=== PATIENT | female | born 1965 | race African-American/Black ===

== ENCOUNTER 2016-07-13 17:29 | Inpatient (IN) | payer OTHER ==
[~2016-07-13] VITALS: Ht 157.5 cm; Wt 67.0 kg
[~2016-07-13 17:29] MED LIST: CILO100T PO; CLOP75TA PO; HYDR25TA5 PO; METO50TA11 PO; NITR1SUB2 SL
[2016-07-13 17:31] VITALS: BP 142/104; PULSE 76; RESP 16; TEMP 97.4; O2SAT 98
[2016-07-13 19:19] LABS: AUTOMATED NEUTROPHIL # 1.5 TH/MM3 (1.8-7.7); BASOPHIL % 0.6 % (0.0-2.0); EOSINOPHIL % 0.2 % (0.0-4.0); HEMATOCRIT 33.9 % (35.0-46.0); HEMO FLAGS DIFF FINAL; LYMPH % 37.4 % (9.0-44.0); LYMPHOCYTE # 1.1 TH/MM3 (1.0-4.8); MEAN CELL VOLUME 85.8 FL (80.0-100.0); MEAN CORPUSCULAR HEMOGLOBIN 29.3 PG (27.0-34.0); MEAN CORPUSCULAR HGB CONC 34.2 % (32.0-36.0); MONO % 10.5 % (0.0-8.0); NEUT % 51.3 % (16.0-70.0); PLATELET COUNT 175 TH/MM3 (150-450); RED BLOOD COUNT 3.95 MIL/MM3 (4.00-5.30); RED CELL DISTRIBUTION WIDTH 14.4 % (11.6-17.2); WHITE BLOOD COUNT 2.9 TH/MM3 (4.0-11.0)
--- NOTE | 2016-07-13 19:25 | PD ---
HPI Chief Complaint: Abnormal Results Time Seen by Provider: 19:21 Travel History International Travel<30 days: No Contact w/Intl Traveler<30days: No Traveled to known affect area: No History of Present Illness HPI Patient is a 50-year-old female presenting to the emergency department on the advice of her primary physician for reevaluation of her renal function. Patient states she had labs drawn on 07/10/16 which showed a BUN and creatinine of 63/6.6. Patient does have a history of chronic kidney disease, she reports it being stage III the last she was aware. Her medical history also includes hypertension, Valdez syndrome, coronary artery disease status post CABG, DVT. Patient is currently on Plavix. Patient has no physical complaints at this time. PFSH Past Medical History Hx Anticoagulant Therapy: Yes Autoimmune Disease: Yes (Valdez syndrome) Coronary Artery Disease: Yes Deep Vein Thrombosis: Yes Hypertension: Yes Renal Failure: Yes (stage III) Past Surgical History Coronary Artery Bypass Graft: Yes Social History Alcohol Use: No Tobacco Use: No Substance Use: No Allergies-Medications (Allergen,Severity, Reaction): Coded Allergies: HMG-CoA Reductase Inhibitors (Verified Allergy, Severe, Cramping, 07/13/16) Reported Meds & Prescriptions Reported Meds & Active Scripts Active Clopidogrel (Clopidogrel Bisulfate) 75 Mg Tab 75 Mg PO DAILY Metoprolol Succinate ER 24 HR (Metoprolol Succinate) 50 Mg Tab 50 Mg PO DAILY Cilostazol 100 Mg Tab 100 Mg PO BID Hydrochlorothiazide 25 Mg Tab 25 Mg PO DAILY Nitroglycerin SL (Nitroglycerin) 0.3 Mg Subl 0.3 Mg SL DIRECTED PRN 1 TABLET UNDER TONGUE PRN FOR CHEST PAIN, MAY REPEAT EVERY 5 MINUTES FOR TOTAL OF 3 DOSES. CALL 911 IF NO RELIEF Review of Systems Except as stated in HPI: all other systems reviewed are Neg Physical Exam Narrative GENERAL: Well-developed, well-nourished, alert female. Resting comfortably in no acute distress. SKIN: Warm and dry. HEAD: Atraumatic. Normocephalic. EYES: Pupils equal and round. No scleral icterus. No injection or drainage. ENT: No nasal bleeding or discharge. Mucous membranes pink and moist. NECK: Trachea midline. No JVD. CARDIOVASCULAR: Regular rate and rhythm. No murmur appreciated. RESPIRATORY: No accessory muscle use. Clear to auscultation. Breath sounds equal bilaterally. GASTROINTESTINAL: Abdomen soft, non-tender, nondistended. Hepatic and splenic margins not palpable. MUSCULOSKELETAL: No obvious deformities. No clubbing. No cyanosis. No edema. NEUROLOGICAL: Awake and alert. No obvious cranial nerve deficits. Motor grossly within normal limits. Normal speech. PSYCHIATRIC: Appropriate mood and affect; insight and judgment normal. Data Data Last Documented VS Vital Signs Date Time Temp Pulse Resp B/P Pulse Ox O2 Delivery O2 Flow Rate FiO2 07/13/16 17:31 97.4 76 16 142/104 98 Room Air Orders Complete Blood Count With Diff (07/13/16 18:39) Basic Metabolic Panel (Bmp) (07/13/16 18:50) Urinalysis - C+S If Indicated (07/13/16 19:20) Labs Laboratory Tests Test 07/13/16 07/13/16 18:55 19:29 White Blood Count 2.9 TH/MM3 Red Blood Count 3.95 MIL/MM3 Hemoglobin 11.6 GM/DL Hematocrit 33.9 % Mean Corpuscular Volume 85.8 FL Mean Corpuscular Hemoglobin 29.3 PG Mean Corpuscular Hemoglobin 34.2 % Concent Red Cell Distribution Width 14.4 % Platelet Count 175 TH/MM3 Mean Platelet Volume 9.0 FL Neutrophils (%) (Auto) 51.3 % Lymphocytes (%) (Auto) 37.4 % Monocytes (%) (Auto) 10.5 % Eosinophils (%) (Auto) 0.2 % Basophils (%) (Auto) 0.6 % Neutrophils # (Auto) 1.5 TH/MM3 Lymphocytes # (Auto) 1.1 TH/MM3 Monocytes # (Auto) 0.3 TH/MM3 Eosinophils # (Auto) 0.0 TH/MM3 Basophils # (Auto) 0.0 TH/MM3 CBC Comment DIFF FINAL Differential Comment Sodium Level 136 MEQ/L Potassium Level 3.4 MEQ/L Chloride Level 102 MEQ/L Carbon Dioxide Level 24.3 MEQ/L Anion Gap 10 MEQ/L Blood Urea Nitrogen 64 MG/DL Creatinine 6.73 MG/DL Estimat Glomerular Filtration 8 ML/MIN Rate Random Glucose 107 MG/DL Calcium Level 7.7 MG/DL Urine Color LIGHT-YELLOW Urine Turbidity CLEAR Urine pH 6.0 Urine Specific [place] 1.006 Urine Protein 300 mg/dL Urine Glucose (UA) NEG mg/dL Urine Ketones NEG mg/dL Urine Occult Blood NEG Urine Nitrite NEG Urine Bilirubin NEG Urine Urobilinogen LESS THAN 2.0 MG/DL Urine Leukocyte Esterase NEG Urine RBC 1 /hpf Urine WBC 1 /hpf Urine Squamous Epithelial <1 /hpf Cells Urine Bacteria RARE /hpf Urine Hyaline Casts 1 /lpf Urine Mucus FEW /lpf Microscopic Urinalysis Comment CULT NOT INDICATED MDM Medical Decision Making Medical Screen Exam Complete: Yes Emergency Medical Condition: Yes Interpretation(s) Vital Signs Date Time Temp Pulse Resp B/P Pulse Ox O2 Delivery O2 Flow Rate FiO2 07/13/16 17:31 97.4 76 16 142/104 98 Room Air Differential Diagnosis Acute on chronic renal failure versus end-stage renal disease versus electrolyte abnormality versus urinary tract infection versus dehydration versus other Narrative Course Patient is a 50-year-old female who presents emergency department on the advice of her primary physician due to elevated BUN and creatinine. Patient does have a history of chronic kidney disease stage III. She also has a history of Valdez syndrome. She no physical complaints today. Labs ordered and pending. Care of patient will be transferred to provider when medical bed available. Sarika Campbell Jul 13, 2016 19:25
[2016-07-13 19:41] LABS: BICARBONATE 24.3 MEQ/L (21.0-32.0); POTASSIUM 3.4 MEQ/L (3.5-5.1)
[2016-07-13 19:48] LABS: BACTERIA, URINE RARE /hpf; BLOOD, URINE NEG (NEG); COMMENT (UR) CULT NOT INDICATED; CULTURE IF INDICATED CULT NOT INDICATED; GLUCOSE,URINE NEG (NEG); HYALINE CAST, URINE 1 /lpf (RARE); KETONE, URINE NEG (NEG); MUCUS URINE FEW /lpf (OCC); NITRITE,URINE NEG (NEG); SQUAMOUS EPITHELIAL CELL URINE <1 /hpf (0-5); URINE COLOR LIGHT-YELLOW (YELLW/STRAW)
--- NOTE | 2016-07-13 20:16 | PD ---
Physical Exam Time Seen by Provider: 20:14 Narrative The patient was initially assessed in triage by SONNY Mathur. See her note for initial assessment and evaluation. I reassessed the patient and I agree with initial evaluation and history of present illness. Data Data Last Documented VS Vital Signs Date Time Temp Pulse Resp B/P Pulse Ox O2 Delivery O2 Flow Rate FiO2 07/13/16 17:31 97.4 76 16 142/104 98 Room Air Orders Complete Blood Count With Diff (07/13/16 18:39) Basic Metabolic Panel (Bmp) (07/13/16 18:50) Urinalysis - C+S If Indicated (07/13/16 19:20) Consult Nephrology (07/13/16 ) Glomerular Basement Membran Ab (07/13/16 21:16) Juliann Screen (07/13/16 21:16) Antineutrophil Cytoplasmic Abs (07/13/16 21:16) Complement C3 (07/13/16 21:16) Complement C4 (07/13/16 21:16) Protein Creat Ratio, Random Ur (07/13/16 21:16) Renal Functional Panel (07/14/16 06:00) Us Kidney/Renal/Bladder (07/13/16 ) Hepatitis Profile (07/13/16 21:16) Lupus Anticoagulant Drvvt (07/13/16 21:23) Anti-Phospholipid Abs W/O Lup (07/13/16 21:23) Labs Laboratory Tests Test 07/13/16 07/13/16 18:55 19:29 White Blood Count 2.9 TH/MM3 Red Blood Count 3.95 MIL/MM3 Hemoglobin 11.6 GM/DL Hematocrit 33.9 % Mean Corpuscular Volume 85.8 FL Mean Corpuscular Hemoglobin 29.3 PG Mean Corpuscular Hemoglobin 34.2 % Concent Red Cell Distribution Width 14.4 % Platelet Count 175 TH/MM3 Mean Platelet Volume 9.0 FL Neutrophils (%) (Auto) 51.3 % Lymphocytes (%) (Auto) 37.4 % Monocytes (%) (Auto) 10.5 % Eosinophils (%) (Auto) 0.2 % Basophils (%) (Auto) 0.6 % Neutrophils # (Auto) 1.5 TH/MM3 Lymphocytes # (Auto) 1.1 TH/MM3 Monocytes # (Auto) 0.3 TH/MM3 Eosinophils # (Auto) 0.0 TH/MM3 Basophils # (Auto) 0.0 TH/MM3 CBC Comment DIFF FINAL Differential Comment Sodium Level 136 MEQ/L Potassium Level 3.4 MEQ/L Chloride Level 102 MEQ/L Carbon Dioxide Level 24.3 MEQ/L Anion Gap 10 MEQ/L Blood Urea Nitrogen 64 MG/DL Creatinine 6.73 MG/DL Estimat Glomerular Filtration 8 ML/MIN Rate Random Glucose 107 MG/DL Calcium Level 7.7 MG/DL Urine Color LIGHT-YELLOW Urine Turbidity CLEAR Urine pH 6.0 Urine Specific [place] 1.006 Urine Protein 300 mg/dL Urine Glucose (UA) NEG mg/dL Urine Ketones NEG mg/dL Urine Occult Blood NEG Urine Nitrite NEG Urine Bilirubin NEG Urine Urobilinogen LESS THAN 2.0 MG/DL Urine Leukocyte Esterase NEG Urine RBC 1 /hpf Urine WBC 1 /hpf Urine Squamous Epithelial <1 /hpf Cells Urine Bacteria RARE /hpf Urine Hyaline Casts 1 /lpf Urine Mucus FEW /lpf Microscopic Urinalysis Comment CULT NOT INDICATED MDM Medical Record Reviewed: Yes Supervised Visit with MARIA INES: Yes Differential Diagnosis Kidney failure, end-stage renal disease, medical clearance Narrative Course The patient was initially assessed in triage by SONNY Mathur. See her note for initial assessment and evaluation. I reassessed the patient and I agree with initial evaluation and history of present illness. 2015: WBC 2.9. Potassium 3.4. BUN 64. Creatinine 6.73. GFR 8. 2052: I spoke with Dr. Stahl, manager office and he recommended for the patient to be admitted to medical with consult to him. Call placed to [facility]. 2199: Dr. Bowling, Resident MD, at bedside and report given. Patient admitted. Physician Communication Physician Communication Dr. Sathl, manager office Dr. Aburto, Resident MD Diagnosis Primary Impression: ESRD (end stage renal disease) Admitting Information Admitting Physician Requests: Admit AdamtevinYuridia Jul 13, 2016 20:16
[2016-07-13 22:00] VITALS: BP 157/92; PULSE 70; RESP 14; O2SAT 97
[2016-07-13] MEDS ORDERED: ONDANSETRON HCL 4 MG/2 ML VIAL IVP PRN (22:15)
[2016-07-13] MEDS ORDERED: ACETAMINOPHEN 325 MG TAB PO PRN (22:15)
[2016-07-13] MEDS ORDERED: NALOXONE HCL 0.4 MG/ML AMP IV PRN (22:15)
[2016-07-13] MEDS ORDERED: SODIUM CHLORIDE 0.9% FLUSH 5 ML FLUSH FLUSH PRN (22:15)
--- NOTE | 2016-07-13 22:22 | HHI.HP ---
[facility] Service Family Medicine Primary Care Physician [facility] R1 MD Idris Admission Diagnosis ESRD Diagnoses: Chief Complaint: Sent over by PCP for abnormal labs. International Travel<30 Days: No Contact w/Intl Traveler<30days: No Known Affected Area: No History of Present Illness Patient is a 50-year-old female with a past medical history significant for HTN , CAD s/p CABG, ESRD, and Valdez syndrome who presented to the ED after being sent over by her PCP, Dr. Goff, for abnormal labs. Patient had a creatinine of 5.12 and a GFR of 7 on 07/03. A repeat BMP was performed in the creatinine increased to 6.6 and GFR 7 today. Patient has been feeling fatigued, nausea, vomiting, lightheaded, and having difficulty with short term memory. She is producing urine up to 5 times per day. She denies any polyuria or polydipsia. No fevers, chills, dysuria, back pain, hematuria, headache, dizziness, or visual changes. (Sugar Dennis MD R2) Review of Systems Constitutional: COMPLAINS OF: Fatigue, DENIES: Fever, Dizziness Endocrine: DENIES: Polydipsia, Polyuria Eyes: DENIES: Blurred vision, Vision loss Respiratory: DENIES: Cough, Shortness of breath Cardiovascular: DENIES: Chest pain, Lower Extremity Edema Gastrointestinal: COMPLAINS OF: Nausea, Vomiting, DENIES: Abdominal pain Genitourinary: DENIES: Hematuria, Dysuria Musculoskeletal: DENIES: Muscle aches, Back pain Integumentary: DENIES: Rash Neurologic: DENIES: Headache, Localized weakness, Paresthesias Psychiatric: DENIES: Mood changes (Sugar Dennis MD R2) Past Family Social History Past Medical History HTN ESRD Valdez syndrome: autoimmune clotting disorder DVT of right foot on September 03, 2011 Past Surgical History CABG - 1999 - 2000 Reported Medications Reported Meds & Active Scripts Active Clopidogrel (Clopidogrel Bisulfate) 75 Mg Tab 75 Mg PO DAILY Metoprolol Succinate ER 24 HR (Metoprolol Succinate) 50 Mg Tab 50 Mg PO DAILY Cilostazol 100 Mg Tab 100 Mg PO BID Hydrochlorothiazide 25 Mg Tab 25 Mg PO DAILY Nitroglycerin SL (Nitroglycerin) 0.3 Mg Subl 0.3 Mg SL DIRECTED PRN 1 TABLET UNDER TONGUE PRN FOR CHEST PAIN, MAY REPEAT EVERY 5 MINUTES FOR TOTAL OF 3 DOSES. CALL 911 IF NO RELIEF (Sugar Dennis MD R2) Allergies: Coded Allergies: HMG-CoA Reductase Inhibitors (Verified Allergy, Severe, Cramping, 07/13/16) Family History Father: in Jan 1998 at age 67 in 1997 from an auto accident. Mother: in Apr 1998 at age 52 from a heart attack Sibling(s): 5 brothers and 1 sister who all live in [place], pt is child # 4 Children: 3 Female, 29 - lives in [place] Male, 20 - [employer] in [place] Male, 15 - lives with parents Social History No tobacco, alcohol or illicit drug use. (Sugar Dennis MD R2) Physical Exam Vital Signs Vital Signs Date Time Temp Pulse Resp B/P Pulse Ox O2 Delivery O2 Flow Rate FiO2 07/13/16 22:00 70 14 157/92 97 Room Air 07/13/16 17:31 97.4 76 16 142/104 98 Room Air Physical Exam GENERAL: This is a well-nourished, well-developed female patient, in no apparent distress. SKIN: No rashes, ecchymoses or lesions. Cool and dry. HEAD: Atraumatic. Normocephalic. No temporal or scalp tenderness. EYES: Pupils equal round and reactive. Extraocular motions intact. No scleral icterus. No injection or drainage. ENT: Nose without bleeding, purulent drainage or septal hematoma. Throat without erythema, tonsillar hypertrophy or exudate. Uvula midline. Airway patent. NECK: Trachea midline. No JVD or lymphadenopathy. Supple, nontender, no meningeal signs. CARDIOVASCULAR: Regular rate and rhythm without gallops or rubs. 2/6 holosystolic murmur that radiates to the carotids RESPIRATORY: Clear to auscultation. Breath sounds equal bilaterally. No wheezes , rales, or rhonchi. GASTROINTESTINAL: Abdomen soft, non-tender, nondistended. No hepato-splenomegaly , or palpable masses. No guarding. No CVA tenderness. MUSCULOSKELETAL: Extremities without clubbing, cyanosis, or edema. No joint tenderness, effusion, or edema noted. No calf tenderness. NEUROLOGICAL: Awake and alert. Cranial nerves II through XII intact. Motor and sensory grossly within normal limits. Normal speech. PSYCHIATRIC: Appropriate insight and judgement. Laboratory Laboratory Tests Test 07/13/16 07/13/16 18:55 19:29 White Blood Count 2.9 Red Blood Count 3.95 Hemoglobin 11.6 Hematocrit 33.9 Mean Corpuscular Volume 85.8 Mean Corpuscular Hemoglobin 29.3 Mean Corpuscular Hemoglobin 34.2 Concent Red Cell Distribution Width 14.4 Platelet Count 175 Mean Platelet Volume 9.0 Neutrophils (%) (Auto) 51.3 Lymphocytes (%) (Auto) 37.4 Monocytes (%) (Auto) 10.5 Eosinophils (%) (Auto) 0.2 Basophils (%) (Auto) 0.6 Neutrophils # (Auto) 1.5 Lymphocytes # (Auto) 1.1 Monocytes # (Auto) 0.3 Eosinophils # (Auto) 0.0 Basophils # (Auto) 0.0 CBC Comment DIFF FINAL Differential Comment Sodium Level 136 Potassium Level 3.4 Chloride Level 102 Carbon Dioxide Level 24.3 Anion Gap 10 Blood Urea Nitrogen 64 Creatinine 6.73 Estimat Glomerular Filtration 8 Rate Random Glucose 107 Calcium Level 7.7 Urine Color LIGHT-YELLOW Urine Turbidity CLEAR Urine pH 6.0 Urine Specific [place] 1.006 Urine Protein 300 Urine Glucose (UA) NEG Urine Ketones NEG Urine Occult Blood NEG Urine Nitrite NEG Urine Bilirubin NEG Urine Urobilinogen LESS THAN 2.0 Urine Leukocyte Esterase NEG Urine RBC 1 Urine WBC 1 Urine Squamous Epithelial <1 Cells Urine Bacteria RARE Urine Hyaline Casts 1 Urine Mucus FEW Microscopic Urinalysis Comment CULT NOT INDICATED (Sugar Dennis MD R2) Result Diagram: 07/13/16185407/13/161854 Septic Shock Reassessment Heart: Regular rate and rhythm Lungs: Clear Skin: Warm, Dry Peripheral Pulses: Bounding Right Radial Bounding Left Radial Capillary Refill: Brisk (Sugar Dennis MD R2) Assessment and Plan Assessment and Plan Patient is a 50-year-old female with a past medical history significant for HTN , CAD s/p CABG, CKD, and Valdez syndrome admitted for ESRD. Code Status Full Code Discussed Condition With [facility] Medicine Team (Sugar Dennis MD R2) Attending Attestation The patient has been seen and examined. The chart and all resident notes have been reviewed. I agree that inpatient care is appropriate and that a two midnight stay is expected for the reasons documented in the resident history and physical. I have discussed this with the resident and certify the resident s order for inpatient admission. (Angélica Hodges MD) Problem List: (1) ESRD (end stage renal disease) Status: Acute Plan: Creatinine elevated at 6.73, BUN elevated at 64. Progressively increasing. Cr Clearance 10.4 History significant for fatigue, light-headedness, short term memory loss. UA significant for 300 protein 2/10 microalbumin/creatinine ratio elevated at 5513.7, TSH wnl 2.740 Continues to produce urine. Plan: - Consult Nephrology- Dr. Stahl. May eventually require dialysis. - Obtain Phos, Mg, Renal US - AM CBC, CMP (2) HTN (hypertension) Status: Acute Plan: BP 157/92 on admission Continue home dose of HCTZ 25mg PO daily Hydralazine 10mg PO Q8H PRN (3) CAD (coronary artery disease) Status: Acute Plan: Continue home dose of Plavix 75mg PO daily and Metoprolol 50mg PO daily (4) Valdez syndrome Status: Acute Plan: Continue home dose of Cilostazol 100mg PO BID (5) Nutrition, metabolism, and development symptoms Status: Acute Plan: Fluids: None Electrolytes: mild hypokalemia of 3.4, repleted with 20meq KCl, continue to monitor Nutrition: Renal Diet DVT PPx: Heparin 5000units SQ Q12H (Sugar Dennis MD R2) Physician Certification 2 Midnight Certification Type: Admission for Inpatient Services Order for Inpatient Services The services are ordered in accordance with Medicare regulations or non- Medicare payer requirements, as applicable. In the case of services not specified as inpatient-only, they are appropriately provided as inpatient services in accordance with the 2-midnight benchmark. Estimated LOS (days): 3 days is the estimated time the patient will need to remain in the hospital, assuming treatment plan goals are met and no additional complications. Post-Hospital Plan: Home (Sugar Dennis MD R2) Problem Qualifiers (1) HTN (hypertension): Qualified Code: I10 - Essential hypertension (2) CAD (coronary artery disease): Qualified Code: I25.10 - Coronary artery disease involving [place] coronary artery of [place] heart without angina pectoris Sugar Dennis MD R2 Jul 13, 2016 22:22 Angélica Hodges MD Jul 14, 2016 20:52
[2016-07-13] MEDS ORDERED: hydrALAZINE HCL 10 MG TAB PO PRN (22:45)
[2016-07-13] MEDS ORDERED: POTASSIUM CHLORIDE 20 MEQ CONTROLLED RELEASE TAB PO ONE (22:45)
[2016-07-13] MEDS ORDERED: NITROGLYCERIN 0.3 MG SL 100 TABS/BTL SL PRN (22:45)
[2016-07-13 23:00] LABS: MAGNESIUM 2.1 MG/DL (1.5-2.5); TRANSFERRIN IRON PROFILE 170 MG/DL (200-360)
[2016-07-13 23:03] LABS: FERRITIN 329 NG/ML (8-252)
[2016-07-13] MEDS: HEPARIN SODIUM - SQ 10,000 UNITS/ML VIAL SQ SCH (23:21)
[2016-07-13 23:24] LABS: APTT (PATIENT) 27.3 SEC (24.3-30.1); INTERNATIONAL NORMALIZED RATIO 0.9 RATIO; PROTHROMBIN TIME - PATIENT 10.3 SEC (9.8-11.6)
--- NOTE | 2016-07-13 23:28 | PD.CONS ---
HPI Service Nephrology Consult Requested By Reason for Consult ESRD Primary Care Physician Genny Steinberg MD History of Present Illness Patient is a 50-year-old female with history of antiphospholipid antibody syndrome, coronary artery disease status post CABG , chronic kidney disease who has progressed towards end-stage renal disease, she has moved from [place], patient has lost her insurance not been to a child day care teacher for more than a year further patient states that she was being followed by a child day care teacher in [place] area however she did do not recall the name, she has antiphospholipid antibody syndrome and had DVT after her cardiac surgery and was on blood thinners currently on Plavix. Patient has been having nausea, vomiting, fatigue, loss of memory and loss of appetite, she still passing urine denies any shortness of breath or edema. Review of Systems Constitutional: COMPLAINS OF: Fatigue Gastrointestinal: COMPLAINS OF: Nausea, Vomiting, Anorexia Psychiatric: COMPLAINS OF: Anxiety Past Family Social History Allergies: Coded Allergies: HMG-CoA Reductase Inhibitors (Verified Allergy, Severe, Cramping, 07/13/16) Past Medical History Chronic kidney disease Antiphospholipid antibody syndrome DVT Coronary artery disease status post CABG Hypertension Past Surgical History Coronary artery bypass surgery Reported Medications Reported Meds & Active Scripts Active Clopidogrel (Clopidogrel Bisulfate) 75 Mg Tab 75 Mg PO DAILY Metoprolol Succinate ER 24 HR (Metoprolol Succinate) 50 Mg Tab 50 Mg PO DAILY Cilostazol 100 Mg Tab 100 Mg PO BID Hydrochlorothiazide 25 Mg Tab 25 Mg PO DAILY Nitroglycerin SL (Nitroglycerin) 0.3 Mg Subl 0.3 Mg SL DIRECTED PRN 1 TABLET UNDER TONGUE PRN FOR CHEST PAIN, MAY REPEAT EVERY 5 MINUTES FOR TOTAL OF 3 DOSES. CALL 911 IF NO RELIEF Active Ordered Medications Current Medications Medications (Trade) Dose Ordered Sig/Hunter Route Start Time Stop Time Status Last Admin (NS Flush) 2 ml UNSCH PRN FLUSH 07/13/16 22:15 (NS Flush) 2 ml BID FLUSH 07/14/16 09:00 (Tylenol) 650 mg Q4H PRN PO 07/13/16 22:15 (Zofran Inj) 4 mg Q6H PRN IVP 07/13/16 22:15 (Narcan Inj) 0.4 mg UNSCH PRN IV 07/13/16 22:15 (Pletal) 100 mg BID PO 07/14/16 09:00 (Plavix) 75 mg DAILY PO 07/14/16 09:00 (Hydrodiuril) 25 mg DAILY PO 07/14/16 09:00 (Toprol Xl) 50 mg DAILY PO 07/14/16 09:00 (Nitrostat Sl) 0.3 mg Q6HR PRN SL 07/13/16 22:45 (Heparin Inj) 5,000 units Q12H SQ 07/13/16 22:30 (Apresoline) 10 mg Q8HR PRN PO 07/13/16 22:45 Family History Noncontributory Social History Denies smoking or alcohol use Physical Exam Vital Signs Vital Signs Date Time Temp Pulse Resp B/P Pulse Ox O2 Delivery O2 Flow Rate FiO2 07/13/16 22:00 70 14 157/92 97 Room Air 07/13/16 17:31 97.4 76 16 142/104 98 Room Air Physical Exam GENERAL: Well-nourished, well-developed patient. SKIN: Warm and dry. HEAD: Normocephalic. EYES: No scleral icterus. No injection or drainage. NECK: Supple, trachea midline. No JVD or lymphadenopathy. CARDIOVASCULAR: Regular rate and rhythm without murmurs, gallops, or rubs. RESPIRATORY: Breath sounds equal bilaterally. No accessory muscle use. GASTROINTESTINAL: Abdomen soft, non-tender, nondistended. EXTREMITIES: No cyanosis, or edema. NEUROLOGICAL: Awake, alert, and oriented x 3. Non-focal. Laboratory Laboratory Tests Test 07/13/16 07/13/16 18:55 19:29 White Blood Count 2.9 Red Blood Count 3.95 Hemoglobin 11.6 Hematocrit 33.9 Mean Corpuscular Volume 85.8 Mean Corpuscular Hemoglobin 29.3 Mean Corpuscular Hemoglobin 34.2 Concent Red Cell Distribution Width 14.4 Platelet Count 175 Mean Platelet Volume 9.0 Neutrophils (%) (Auto) 51.3 Lymphocytes (%) (Auto) 37.4 Monocytes (%) (Auto) 10.5 Eosinophils (%) (Auto) 0.2 Basophils (%) (Auto) 0.6 Neutrophils # (Auto) 1.5 Lymphocytes # (Auto) 1.1 Monocytes # (Auto) 0.3 Eosinophils # (Auto) 0.0 Basophils # (Auto) 0.0 CBC Comment DIFF FINAL Differential Comment Sodium Level 136 Potassium Level 3.4 Chloride Level 102 Carbon Dioxide Level 24.3 Anion Gap 10 Blood Urea Nitrogen 64 Creatinine 6.73 Estimat Glomerular Filtration 8 Rate Random Glucose 107 Calcium Level 7.7 Phosphorus Level 4.2 Magnesium Level 2.1 Iron Level 42 Total Iron Binding Capacity 238 Percent Iron Saturation 17.6 Ferritin 329 Urine Color LIGHT-YELLOW Urine Turbidity CLEAR Urine pH 6.0 Urine Specific [place] 1.006 Urine Protein 300 Urine Glucose (UA) NEG Urine Ketones NEG Urine Occult Blood NEG Urine Nitrite NEG Urine Bilirubin NEG Urine Urobilinogen LESS THAN 2.0 Urine Leukocyte Esterase NEG Urine RBC 1 Urine WBC 1 Urine Squamous Epithelial <1 Cells Urine Bacteria RARE Urine Hyaline Casts 1 Urine Mucus FEW Microscopic Urinalysis Comment CULT NOT INDICATED Result Diagram: 07/13/16185407/13/161854 Assessment and Plan Problem List: (1) ESRD (end stage renal disease) Plan: Patient is explained that she has advanced kidney disease and nausea could be related to early signs of uremia, she may have progress towards end- stage renal disease due to progression of underlying kidney disease which may be related to antiphospholipid antibody syndrome, FSGS however this is preliminary differential diagnosis, we need to review the records from [facility] to compare. I have explained to her that her kidney failure is far advanced and she may need to hemodialysis versus peritoneal dialysis and ports, difference in modalities were explained to her, the fastest is hemodialysis via temporary catheter and this will be requested in the morning, since she has APS, I will request a hematology consult. (2) HTN (hypertension) Plan: Continue monitor in the hospital (3) CAD (coronary artery disease) Plan: Status post CABG (4) Valdez syndrome Plan: Hematology consulted [facility] for autoimmune and Anti phospholipid antibody ordered. Problem Qualifiers (1) HTN (hypertension): Qualified Code: I10 - Essential hypertension (2) CAD (coronary artery disease): Qualified Code: I25.10 - Coronary artery disease involving [place] coronary artery of [place] heart without angina pectoris Casey Stahl MD Jul 13, 2016 23:28
[2016-07-14] VITALS (7 sets, daily range): BP systolic 114–166; BP diastolic 83–111; PULSE 63–80; RESP 16–18; TEMP 96.2–97.9; O2SAT 98–100
--- NOTE | 2016-07-14 00:37 | RADRPT ---
EXAM DATE/TIME: 07/13/2016 23:47 [facility] COMPARISON: No previous studies available for comparison. INDICATIONS : Increased BUN and Creatinine. MEDICAL HISTORY : Hypertension. Deep venous thrombosis. Myocardial infarction. Stage 3 renal failure. Coronary artery d isease. Anticoagulant therapy. RACH's syndrome. SURGICAL HISTORY : CABG. section. ENCOUNTER: Initial ACUITY: 1 day PAIN SCORE: 0/10 LOCATION: Bilateral flank MEASUREMENTS: RIGHT KIDNEY: 8.5 x 4.1 x 3.3 cm LEFT KIDNEY: 8.4 x 5.1 x 4.6 cm FINDINGS: RIGHT KIDNEY: The kidney is echogenic. There is a 1.9 cm cyst at the lower pole. No hydronephrosis is seen. LEFT KIDNEY: The kidney is echogenic. There is a 1.1 cm cyst at the upper pole. No hydronephrosis is seen. BLADDER: Within normal limits given the degree of distension. CONCLUSION: Bilateral echogenic small kidneys consistent with medical renal disease. Elder Mckeon MD on July 14, 2016 at 0:34 Board Certified Radiologist. This report was verified electronically.
[2016-07-14 06:07] LABS: AUTOMATED NEUTROPHIL # 1.4 TH/MM3 (1.8-7.7); BASOPHIL % 0.4 % (0.0-2.0); EOSINOPHIL % 0.4 % (0.0-4.0); HEMATOCRIT 30.9 % (35.0-46.0); HEMO FLAGS DIFF FINAL; LYMPH % 38.1 % (9.0-44.0); MEAN CELL VOLUME 86.8 FL (80.0-100.0); MEAN CORPUSCULAR HEMOGLOBIN 29.2 PG (27.0-34.0); MEAN CORPUSCULAR HGB CONC 33.7 % (32.0-36.0); MONO % 9.2 % (0.0-8.0); NEUT % 51.9 % (16.0-70.0); PLATELET COUNT 150 TH/MM3 (150-450); RED BLOOD COUNT 3.56 MIL/MM3 (4.00-5.30); RED CELL DISTRIBUTION WIDTH 14.4 % (11.6-17.2); WHITE BLOOD COUNT 2.7 TH/MM3 (4.0-11.0)
[2016-07-14 06:26] LABS: BICARBONATE 21.2 MEQ/L (21.0-32.0); POTASSIUM 3.5 MEQ/L (3.5-5.1)
[2016-07-14 06:30] LABS: ALKALINE PHOSPHATASE 80 U/L (45-117); ALT (GPT) 14 U/L (10-53); ANION GAP 13 MEQ/L (5-15); AST (GOT) 18 U/L (15-37); BLOOD UREA NITROGEN 66 MG/DL (7-18); CHLORIDE 104 MEQ/L (98-107); GLOMERULAR FILTRATION RATE 8 ML/MIN (>89); POTASSIUM 3.4 MEQ/L (3.5-5.1); SODIUM (NA) 139 MEQ/L (136-145); TOTAL BILIRUBIN ADULT 0.3 MG/DL (0.2-1.0)
--- NOTE | 2016-07-14 07:21 | HHI.FPPN ---
Subjective Remarks Patient is doing well this morning. She has no complaints. Denies nausea, vomiting, chest pain, shortness of breath. She had questions about dialysis - wanted to know if she would still be able to maintain her activities of daily living while on dialysis [facility]. (Genny Steinberg MD R1) Objective Vitals Vital Signs Date Time Temp Pulse Resp B/P Pulse Ox O2 Delivery O2 Flow Rate FiO2 07/14/16 04:00 Room Air 07/14/16 04:00 96.9 66 16 159/99 100 07/14/16 01:02 Room Air 07/14/16 00:55 97.7 70 16 165/107 100 07/13/16 22:00 70 14 157/92 97 Room Air 07/13/16 17:31 97.4 76 16 142/104 98 Room Air I/O 07/13/16 07/13/16 07/13/16 07/14/16 07/14/16 07/14/16 07:00 15:00 23:00 07:00 15:00 23:00 Intake Total 240 ml Balance 240 ml Intake Oral 240 ml # Voids 1 # Bowel Movements 0 (Genny Steinberg MD R1) Result Diagram: 07/14/16 0506 07/14/16 0505 Objective Remarks GENERAL: This is a well-developed female patient, in no apparent distress. SKIN: No rashes, ecchymoses or lesions. Cool and dry. HEAD: Atraumatic. Normocephalic. No temporal or scalp tenderness. EYES: Pupils equal round and reactive. Extraocular motions intact. No scleral icterus. No injection or drainage. ENT: Nose without bleeding, purulent drainage or septal hematoma. MMM. Uvula midline. Airway patent. NECK: Trachea midline. No JVD or lymphadenopathy. Supple, nontender, no meningeal signs. CARDIOVASCULAR: Regular rate and rhythm without gallops or rubs. 2/6 holosystolic murmur RESPIRATORY: Clear to auscultation. Breath sounds equal bilaterally. No wheezes , rales, or rhonchi. GASTROINTESTINAL: Abdomen soft, non-tender, nondistended. No hepato-splenomegaly , or palpable masses. No guarding. No CVA tenderness. MUSCULOSKELETAL: Extremities without clubbing, cyanosis, or edema. No joint tenderness, effusion, or edema noted. No calf tenderness. NEUROLOGICAL: Awake and alert. Cranial nerves II through XII intact. Motor and sensory grossly within normal limits. Normal speech. PSYCHIATRIC: Appropriate insight and judgement. (Genny Steinberg MD R1) A/P Assessment and Plan Patient is a 50-year-old female with a past medical history significant for HTN , CAD s/p CABG, CKD, and Valdez syndrome admitted for ESRD. We'll discuss with Dr. Montano PGY [address] Hodges Discharge Planning Pending nephrology recommendations after patient receives hemodialysis as an inpatient. (Genny Steinberg MD R1) Attending Attestation patient seen and examined after HD case reviewed and discussed agree with plan of care as discussed with me and documented in the resident note. (Angélica Hodges MD) Problem List: (1) ESRD (end stage renal disease) Status: Acute Plan: -Creatinine elevated at 6.73 at admission, BUN elevated at 64. Cr Clearance 10.4 -History significant for fatigue, light-headedness, short term memory loss -UA significant for 300 protein -07/03/16 microalbumin/creatinine ratio elevated at 5513.7, TSH wnl 2.740 -Continues to produce urine -Renal ultrasound shows small echogenic kidneys consistent with medical renal disease -Delivery Crew Member Dr. Stahl on board. Plan is for a temporary port with hemodialysis today -Strict Is & Os (2) HTN (hypertension) Status: Acute Plan: BP 157/92 on admission Continue home dose of HCTZ 25mg PO daily Hydralazine 10mg PO Q8H PRN BP >160/90 (3) CAD (coronary artery disease) Status: Acute Plan: -Continue home dose of Plavix 75mg PO daily and Metoprolol 50mg PO daily (4) Valdez syndrome Status: Acute Plan: -Continue home dose of Cilostazol 100mg PO BID -Hematology consulted-appreciate recommendations (5) Anemia Status: Acute Plan: H&H on admission 11.6/33.9 -H&H 10.4 and 30.9, respectively today -Ferritin of 329, percentage saturation 17.6, TIBC 238, iron 42, most anemia of chronic diseases -Continue to monitor (6) Nutrition, metabolism, and development symptoms Status: Acute Plan: Fluids: None Electrolytes: mild hypokalemia of 3.4 on admission, repleted with 20meq KCl, added 20meq daily supplementation; Continue to monitor other electrolytes and replace as needed Nutrition: Renal Diet DVT PPx: Heparin 5000units SQ Q12H, bilateral SCDs (Genny Steinberg MD R1) Problem Qualifiers (1) HTN (hypertension): Qualified Code: I10 - Essential hypertension (2) CAD (coronary artery disease): Qualified Code: I25.10 - Coronary artery disease involving [place] coronary artery of [place] heart without angina pectoris (3) Anemia: Qualified Code: D64.9 - Anemia, unspecified type Genny Steinberg MD R1 Jul 14, 2016 07:21 Angélica Hodges MD Jul 14, 2016 20:54
[2016-07-14] MEDS: HYDROCHLOROTHIAZIDE 25 MG TAB PO SCH (08:29)
[2016-07-14] MEDS: METOPROLOL SUCCINATE 50 MG EXTENDED RELEASE TAB PO SCH (08:29)
[2016-07-14] MEDS: SODIUM CHLORIDE 0.9% FLUSH 5 ML FLUSH FLUSH SCH ×2 (08:31→23:39)
[2016-07-14] MEDS: CILOSTAZOL 100 MG TAB PO SCH ×2 (08:32→23:39)
[2016-07-14] MEDS: CLOPIDOGREL 75 MG TAB PO SCH (08:32)
[2016-07-14] MEDS ORDERED: HEPARIN SODIUM - IV 10,000 UNITS/10 ML VIAL IVF PRN ×2 (09:45→10:00)
[2016-07-14] MEDS ORDERED: SODIUM CHLORIDE 0.9% FLUSH 5 ML FLUSH IVF PRN ×2 (09:45→10:00)
--- NOTE | 2016-07-14 09:46 | PD.RAD ---
Post Procedure Progress Note Pre Procedure Diagnosis: (1) ESRD (end stage renal disease) Post Procedure Diagnosis: (1) ESRD (end stage renal disease) Procedure Date: Jul 14, 2016 Supervising Radiologist: Bora Jimenez JR Proceduralist/Assist: Dayana Aden RT(R), Mono Lopez RT(R) Anesthesia: Local Plan of Activity Patient to Unit: Nursing Unit Patient Condition: Good See PACS Report for procedural detail/treatment Central Venous Access Device Procedure 1 Right Internal Jugular Hemodialysis Catheter Non-Tunneled Placement dual lumen [place]: 14 Findings: Placed RIJ Vascath. Functions well. OK to use. Jr. Tony,Bora Doll MD Jul 14, 2016 09:46
[2016-07-14] MEDS ORDERED: SODIUM CHLOR 0.9% 1000 ML INJ 1,000 ML IV PRN ×2 (09:53)
[2016-07-14] MEDS ORDERED: cloNIDine HCL 0.1 MG TAB PO PRN (10:00)
[2016-07-14] MEDS ORDERED: MANNITOL 12.5 GM/50 ML VIAL IV PRN (10:00)
[2016-07-14] MEDS ORDERED: ALBUMIN HUMAN 25% 25 GM/100 ML BAGP IV PRN (10:00)
[2016-07-14] MEDS ORDERED: diphenhydrAMINE HCL 25 MG CAP PO PRN (10:00)
[2016-07-14] MEDS ORDERED: GELATIN 12 MM/7 MM FOAM TOP PRN (10:00)
[2016-07-14] MEDS ORDERED: ONDANSETRON HCL 4 MG/2 ML VIAL IV PRN (10:00)
[2016-07-14] MEDS ORDERED: ACETAMINOPHEN 325 MG TAB PO PRN (10:00)
[2016-07-14] MEDS ORDERED: NITROGLYCERIN 0.4 MG SL 25 TABS/BTL SL PRN (10:00)
[2016-07-14] MEDS ORDERED: POTASSIUM CHLORIDE 20 MEQ CONTROLLED RELEASE TAB PO ONE (10:15)
--- NOTE | 2016-07-14 11:50 | HHI.NPPN ---
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, CKD approached ESRD Review of Systems General Constitutional: Fatigue Objective Data Data 07/13/16 07/14/16 19:00 07:00 Intake Total 240 ml Balance 240 ml Intake Oral 240 ml # Voids 1 # Bowel Movements 0 Vital Signs Date Time Temp Pulse Resp B/P Pulse Ox O2 Delivery O2 Flow Rate FiO2 07/14/16 08:00 96.2 66 16 154/104 100 07/14/16 08:00 100 Room Air 07/14/16 04:00 Room Air 07/14/16 04:00 96.9 66 16 159/99 100 07/14/16 01:02 Room Air 07/14/16 00:55 97.7 70 16 165/107 100 07/13/16 22:00 70 14 157/92 97 Room Air 07/13/16 17:31 97.4 76 16 142/104 98 Room Air -: 07/14/16 0506 07/14/16 0505 Physical Exam General Appearance: Well Developed, Well Nourished Neck Neck Exam: Neck Supple Pulmonary Resp Exam: Clear Bilaterally, Breath Sounds Equal Cardiology CV Exam: Regular, Normal Sinus Rhythm Gastrointestinal/Abdomen GI Exam: Soft, Non-Tender, Bowel Sounds Present Extremeties Extremities Exam: No Edema Neurologic Neuro Exam: Alert, Awake, Oriented Assessment/Plan Problem List: (1) ESRD (end stage renal disease) Plan: Patient is explained that she has advanced kidney disease Likely due to APS, Small echogenic kidneys indicating ESRD Vascath in place Hemodialysis planned No chance of recovery will need rn long term care plans for dialysis 1440 pm seen during dialysis 1 L UF tolerating it well (2) HTN (hypertension) Plan: Continue monitor in the hospital (3) CAD (coronary artery disease) Plan: Status post CABG (4) Valdez syndrome Plan: Hematology consulted Work Up for autoimmune and Anti phospholipid antibody ordered. Problem Qualifiers (1) HTN (hypertension): Qualified Code: I10 - Essential hypertension (2) CAD (coronary artery disease): Qualified Code: I25.10 - Coronary artery disease involving [place] coronary artery of [place] heart without angina pectoris Casey Stahl MD Jul 14, 2016 11:50
[2016-07-14] MEDS: HEPARIN SODIUM - SQ 10,000 UNITS/ML VIAL SQ SCH ×2 (12:15→23:39)
--- NOTE | 2016-07-14 12:58 | RADRPT ---
EXAM DATE/TIME: 07/14/2016 09:28 [facility] COMPARISON: No previous studies available for comparison. INDICATIONS : Patient with end stage renal disease in need of temporary dialysis catheter. MEDICAL HISTORY : CAD HTN ESRD Valdez syndrome : autoimmune clotting disorder Hx DVT SURGICAL HISTORY : CABG 1999 2000 DVT of right foot removed 2011 ENCOUNTER: Initial ACUITY: 2 days PAIN SCORE: 0/10 FLUORO TIME: 0.3 minutes ACCESS: Right internal jugular vein DEVICE(S): 1.) 14 Malay dual lumen 15 cm Schon catheter PROCEDURE : 1. Ultrasound guided venipuncture. 2. Fluoroscopic guidance. 3. Central line placement. The risks, benefits and alternatives to the procedure were explained and verbal and written consent w as obtained. The site was prepped in sterile fashion. Full sterile technique was used, including ca p, mask, sterile gloves and gown and a large sterile sheet. Hand hygiene and 2% chlorhexidine prep w as utilized per protocol for cutaneous antisepsis with appropriate dry time for site. The skin and subcutaneous tissues were infiltrated with local anesthetic solution. A suitable site a charisse the vein was selected with ultrasound and fluoroscopic guidance. A small incision was made. Th e vein was accessed under direct ultrasound visualization using the micropuncture technique. The fredy ropuncture set was exchanged for a 0.035 wire. The tract was dilated. The catheter was advanced int o position under direct fluoroscopic visualization. The catheter was fixed in place with suture and a sterile dressing was applied. The patient tolerated the procedure well and there were no complications. CONCLUSION: Uncomplicated line placement as above. Bora Jimenez Jr., MD on July 14, 2016 at 12:54 Board Certified Radiologist. This report was verified electronically.
[2016-07-14] MEDS: SODIUM CHLOR 0.9% 1000 ML INJ 1,000 ML IV PRN (13:41)
[2016-07-14] MEDS: GENTAMICIN SULFATE (DIALYSIS USE ONLY) 20 MG/2 ML VIAL IV PRN (13:42)
[2016-07-14] MEDS: HEPARIN SODIUM - IV 10,000 UNITS/10 ML VIAL PRN (13:42)
[2016-07-14] MEDS: EPOETIN ALFA 10,000 UNITS/ML VIAL IV PRN (13:42)
--- NOTE | 2016-07-14 15:53 | PD.VS.CON ---
History of Present Illness Chief Complaint: Pt was admitted for abnormal labs has no other complaints Assessed Pt for Possible AVF placement Pt requesting peritoneal dialysis access, which we do not place Consult Requested by: Dr. Stahl History of Present Illness Patient is a 50-year-old female with a past medical history significant for HTN , CAD s/p CABG, ESRD, and Valdez syndrome who presented to the ED after being sent over by her PCP, Dr. Goff, for abnormal labs. Patient had a creatinine of 5.12 and a GFR of 7 on 07/03. (Odette Banerjee) Past/Family/Social History Past Medical History HTN ESRD Valdez syndrome: autoimmune clotting disorder DVT of right foot on September 03, 2011 Past Surgical History CABG - 1999 - 2000 Social History No tobacco, alcohol or illicit drug use. Family History Father: in Jan 1998 at age 67 in 1997 from an auto accident. Mother: in Apr 1998 at age 52 from a heart attack Sibling(s): 5 brothers and 1 sister who all live in [place], pt is child # 4 Children: 3 Female, 29 - lives in [place] Male, 20 - [employer] in [place] Male, 15 - lives with parents (Odette Banerjee) Home Medications Active Scripts Clopidogrel 75 Mg Tab75 Mg PO DAILY #30 TAB Ref 11 Prov:Genny Steniberg MD R1 06/30/16 Metoprolol Succinate ER 24 HR 50 Mg Tab50 Mg PO DAILY #30 TAB Ref 11 Prov:Genny Steinberg MD R1 06/30/16 Cilostazol 100 Mg [id number] Mg PO BID #60 TAB Ref 11 Prov:Genny Steinberg MD R1 06/30/16 Hydrochlorothiazide 25 Mg Tab25 Mg PO DAILY #30 TAB Ref 11 Prov:Genny Steinberg MD R1 06/30/16 Nitroglycerin SL 0.3 Mg Subl0.3 Mg SL DIRECTED PRN (CHEST PAIN) #100 TAB.SL Ref 0 1 TABLET UNDER TONGUE PRN FOR CHEST PAIN, MAY REPEAT EVERY 5 MINUTES FOR TOTAL OF 3 DOSES. CALL 911 IF NO RELIEF Prov:Genny Steinberg MD R1 06/30/16 Coded Allergies: HMG-CoA Reductase Inhibitors (Verified Allergy, Severe, Cramping, 07/13/16) Physical Exam Vitals/I&O Date Time Temp Pulse Resp B/P Pulse Ox O2 Delivery O2 Flow Rate FiO2 07/14/16 12:00 97.4 63 16 166/111 100 07/14/16 08:00 96.2 66 16 154/104 100 07/14/16 08:00 100 Room Air 07/14/16 04:00 Room Air 07/14/16 04:00 96.9 66 16 159/99 100 07/14/16 01:02 Room Air 07/14/16 00:55 97.7 70 16 165/107 100 07/13/16 22:00 70 14 157/92 97 Room Air 07/13/16 17:31 97.4 76 16 142/104 98 Room Air 07/14/16 07/14/16 07/14/16 07:00 15:00 23:00 Intake Total 240 ml Output Total 1000 ml Balance 240 ml -1000 ml Neuro: CN 2-12 Intact Heart: RRR Vascular: non palpable radial pulses noted bilat, with healing scars over radial region pt states from a CABG years ago (Odette Banerjee) Laboratory Tests Test 07/13/16 07/13/16 07/13/16 07/14/16 18:55 19:29 23:00 05:05 White Blood Count 2.9 Red Blood Count 3.95 Hemoglobin 11.6 Hematocrit 33.9 Mean Corpuscular Volume 85.8 Mean Corpuscular Hemoglobin 29.3 Mean Corpuscular Hemoglobin 34.2 Concent Red Cell Distribution Width 14.4 Platelet Count 175 Mean Platelet Volume 9.0 Neutrophils (%) (Auto) 51.3 Lymphocytes (%) (Auto) 37.4 Monocytes (%) (Auto) 10.5 Eosinophils (%) (Auto) 0.2 Basophils (%) (Auto) 0.6 Neutrophils # (Auto) 1.5 Lymphocytes # (Auto) 1.1 Monocytes # (Auto) 0.3 Eosinophils # (Auto) 0.0 Basophils # (Auto) 0.0 CBC Comment DIFF FINAL Differential Comment Sodium Level 136 139 Potassium Level 3.4 3.4 Chloride Level 102 104 Carbon Dioxide Level 24.3 22.0 Anion Gap 10 13 Blood Urea Nitrogen 64 66 Creatinine 6.73 6.83 Estimat Glomerular Filtration 8 8 Rate Random Glucose 107 98 Calcium Level 7.7 8.1 Phosphorus Level 4.2 4.2 Magnesium Level 2.1 Iron Level 42 Total Iron Binding Capacity 238 Percent Iron Saturation 17.6 Ferritin 329 Urine Color LIGHT-YELLOW Urine Turbidity CLEAR Urine pH 6.0 Urine Specific [place] 1.006 Urine Protein 300 Urine Glucose (UA) NEG Urine Ketones NEG Urine Occult Blood NEG Urine Nitrite NEG Urine Bilirubin NEG Urine Urobilinogen LESS THAN 2.0 Urine Leukocyte Esterase NEG Urine RBC 1 Urine WBC 1 Urine Squamous Epithelial <1 Cells Urine Bacteria RARE Urine Hyaline Casts 1 Urine Mucus FEW Microscopic Urinalysis Comment CULT NOT INDICATED Urine Random Creatinine 86 Urine Random Total Protein 292 Urine Protein/Creatinine Ratio 3.40 Prothrombin Time 10.3 Prothromb Time International 0.9 Ratio Activated Partial 27.3 Thromboplast Time Ammonia LESS THAN 10 Total Bilirubin 0.3 Aspartate Amino Transf 18 (AST/SGOT) Alanine Aminotransferase 14 (ALT/SGPT) Alkaline Phosphatase 80 Total Protein 6.7 Albumin 2.6 Complement C3 88 Complement C4 21 Hepatitis A IgM Antibody NEGATIVE Hepatitis B Surface Antigen NEGATIVE Hepatitis B Core IgM Antibody NEGATIVE Hepatitis C Antibody NEGATIVE Test 07/14/16 05:06 White Blood Count 2.7 Red Blood Count 3.56 Hemoglobin 10.4 Hematocrit 30.9 Mean Corpuscular Volume 86.8 Mean Corpuscular Hemoglobin 29.2 Mean Corpuscular Hemoglobin 33.7 Concent Red Cell Distribution Width 14.4 Platelet Count 150 Mean Platelet Volume 9.3 Neutrophils (%) (Auto) 51.9 Lymphocytes (%) (Auto) 38.1 Monocytes (%) (Auto) 9.2 Eosinophils (%) (Auto) 0.4 Basophils (%) (Auto) 0.4 Neutrophils # (Auto) 1.4 Lymphocytes # (Auto) 1.0 Monocytes # (Auto) 0.3 Eosinophils # (Auto) 0.0 Basophils # (Auto) 0.0 CBC Comment DIFF FINAL Differential Comment Last 48 hours Impressions Catheter Placement X-Ray 07/14/16 0600 Signed Impressions: Service Date/Time: Thursday, July 14, 2016 09:28 - CONCLUSION: Uncomplicated line placement as above. Bora Jimenez Jr., MD Renal Ultrasound 07/13/16 0000 Signed Impressions: Service Date/Time: Wednesday, July 13, 2016 23:47 - CONCLUSION: Bilateral echogenic small kidneys consistent with medical renal disease. Elder Mckeon MD (Odette Banerjee) Assessment and Plan Assessment: (1) ESRD (end stage renal disease) Status: Acute Plan Order vein mapping to bilat UE If patient not a candidate for peritoneal dialysis Dr. Vines will place an AVF (Odette Banerjee) Plan Patient is a 60 year old female with hx of ESRD. Hx of bilateral radial artery harvesting for CABG. Patient is right handed. US exam at bedside favors right cephalic vein. Patient requested peritoneal dialysis. I spoke with Dr. Stahl about this and he will discuss this with the patient. Will get formal duplex US (vein mapping) of the upper extremity. I agree with above assessment and plan. Khang Vines DO, FACS [employer] /[facility] (Khang Vines DO) Odette Banerjee Jul 14, 2016 15:53 Khang Vines DO Jul 15, 2016 08:39
--- NOTE | 2016-07-14 17:16 | HHI.FPPN ---
Subjective Subjective Patient seen and examined. Case reviewed and discussed Please refer to resident H&P for further details regarding HPI, ROS, PMH, SUrgHx , FH and SocHx In summary, patient is a 50yoF with a history of chronic kidney disease, CAD s/ p CABG, APS s/p DVT presenting after abnormal outpatient labs. Patient reportedly had a prolonged period of worsening weakness, nausea and memory difficulties proceeding her admission. She is seen immediately following dialysis today. She reports some fatigue and weakness currently. She had a vas-cath placed successfully earlier today. Per nursing, BP has been running high, but responded to HD and clonidine. [facility] Objective Objective Last Impressions Catheter Placement X-Ray 07/14/16 0600 Signed Impressions: Service Date/Time: Thursday, July 14, 2016 09:28 - CONCLUSION: Uncomplicated line placement as above. Bora Jimenez Jr., MD Renal Ultrasound 07/13/16 0000 Signed Impressions: Service Date/Time: Wednesday, July 13, 2016 23:47 - CONCLUSION: Bilateral echogenic small kidneys consistent with medical renal disease. Elder Mckeon MD Laboratory Tests - Abnormals Test 07/13/16 07/13/16 07/13/16 07/14/16 18:55 19:29 23:00 05:05 White Blood Count 2.9 TH/MM3 Red Blood Count 3.95 MIL/MM3 Hematocrit 33.9 % Monocytes (%) (Auto) 10.5 % Neutrophils # (Auto) 1.5 TH/MM3 Potassium Level 3.4 MEQ/L 3.4 MEQ/L Blood Urea Nitrogen 64 MG/DL 66 MG/DL Creatinine 6.73 MG/DL 6.83 MG/DL Estimat Glomerular Filtration 8 ML/MIN 8 ML/MIN Rate Random Glucose 107 MG/DL Calcium Level 7.7 MG/DL 8.1 MG/DL Iron Level 42 MCG/DL Total Iron Binding Capacity 238 MCG/DL Percent Iron Saturation 17.6 % Ferritin 329 NG/ML Urine Protein 300 mg/dL Urine Bacteria RARE /hpf Urine Mucus FEW /lpf Urine Random Total Protein 292 MG/DL Urine Protein/Creatinine Ratio 3.40 Ammonia LESS THAN 10 MCMOL/L Albumin 2.6 GM/DL Complement C3 88 MG/DL Test 07/14/16 05:06 White Blood Count 2.7 TH/MM3 Red Blood Count 3.56 MIL/MM3 Hemoglobin 10.4 GM/DL Hematocrit 30.9 % Monocytes (%) (Auto) 9.2 % Neutrophils # (Auto) 1.4 TH/MM3 Vital Signs 07/13/16 07/13/16 07/14/16 07/14/16 17:31 22:00 00:55 01:02 Temp 97.4 97.7 Pulse 76 70 70 Resp 16 14 16 B/P 142/104 157/92 165/107 Pulse Ox 98 97 100 O2 Delivery Room Air Room Air Room Air 07/14/16 07/14/16 07/14/16 07/14/16 04:00 04:00 08:00 08:00 Temp 96.9 96.2 Pulse 66 66 Resp 16 16 B/P 159/99 154/104 Pulse Ox 100 100 100 O2 Delivery Room Air Room Air 07/14/16 07/14/16 07/14/16 12:00 16:10 16:19 Temp 97.4 96.9 Pulse 63 80 Resp 16 16 B/P 166/111 115/85 127/99 Pulse Ox 100 98 INTAKE & OUTPUT 07/14/16 07:00 Intake Total 240 ml Balance 240 ml Physical exam GENERAL: Thin female, sitting up in chair. NAD SKIN: Warm and dry. No rashes HEAD: Normocephalic. AT EYES: No scleral icterus. No injection or drainage. ENT: OP clear. MMM NECK: Supple, trachea midline. No JVD or lymphadenopathy. CARDIOVASCULAR: Regular rate and rhythm with 2/6 [place] without gallops or rubs. CHEST: Vas-cath over R anterior chest without erythema. RESPIRATORY: Breath sounds equal and clear to auscultation bilaterally. No accessory muscle use. GASTROINTESTINAL: Abdomen soft, non-tender, nondistended. MUSCULOSKELETAL: No cyanosis, or edema. BACK: Nontender without obvious deformity. No CVA tenderness. NEURO: Awake, alert. Tired-appearing. Normal speech. CN grossly intact. 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 Vascular consult for eval for AVF Resume home meds as appropriate Renal ultrasound completed Monitor intake and output. 1L removed with HD today Monitor electrolytes Hematology consulted for APS Patient seen and examined. Case reviewed and discussed Agree with plan of care as discussed with me and documented in the resident note. Angélica Hodges MD Jul 14, 2016 17:15
--- NOTE | 2016-07-14 22:20 | MB ---
cc: IWONA JUAREZ M.D., SAJID MD EKO,MATIAS Caldwell MD DATE OF CONSULTATION REASON FOR CONSULTATION Consult requested by Dr. Stahl, senior c developer, for evaluation of antiphospholipid antibody syndrome. HISTORY OF PRESENT ILLNESS This is a 50-year -Uz[place] female. She is a very poor historian. She recently moved to this area from [place]. She has a history of hypertension, coronary artery disease, chronic renal failure, chronic kidney disease stage III and DVT of the right lower extremity that was diagnosed in 2011. She stated that she was found to have antiphospholipid antibody syndrome. She has seen a tension worker in the past. She does not recall what treatment she had with the tension worker. She is a very poor historian. She stated that she brought her medical records from [place] and gave it to her primary physician, Dr. Steinberg. The patient had episode of DVT of the right lower extremity in 2011. She stated that she was treated with Coumadin; she could not remember for how long. Then she was placed on Plavix. It is not clear whether she was on Plavix for her coronary artery disease or due to the clot or due to the antiphospholipid antibody syndrome. She had not had another blood clot since she has been on Plavix. She denies any family history of thromboembolic disease. The patient went to see her primary physician, Dr. Steinberg, as she was not feeling well. A blood workup was done and her creatinine was found to be elevated at 5.12. This was repeated and the creatinine went up to 6.6. She was advised to come to the emergency room. When the patient came to the emergency room, she had a blood test. The creatinine was 6.73, EGFR is eight. The patient is now admitted to the hospital. [employer]oples[employer] Consultant, Dr. Casey Stahl, was consulted. He is recommending dialysis. Dr. Stahl thinks that the patient has end-stage renal disease and she will require permanent hemodialysis. He is requesting hematology consult for antiphospholipid antibody syndrome. The patient is complaining of weakness, fatigue. She is slow to respond to the questions. I do not know her baseline. PAST MEDICAL HISTORY 1. Hypertension, 2. Coronary artery disease, 3. Chronic kidney disease stage III 4. Antiphospholipid antibody syndrome 5. DVT of the right lower extremity in 2012. PAST SURGICAL HISTORY 1. C section 2. Coronary artery bypass surgery. ALLERGIES STATINS. MEDICATIONS Prior to coming the hospital, 1. Plavix, 2. Metoprolol, 3. Pletal 4. Hydrochlorothiazide 5. Nitroglycerin. FAMILY HISTORY Father from motor vehicle accident. Mother from [place]. The patient has five brothers and one sister, all alive and well. The patient has two sons and one daughter. SOCIAL HISTORY The patient does not smoke cigarettes and does not drink alcohol. PHYSICAL EXAMINATION GENERAL: A well-developed, well-nourished -Uzbek female in no apparent distress. VITAL SIGNS: Temperature 97.9, heart rate is 75, blood pressure 114/83, O2 saturation is 100% on room air. HEENT: PERRLA, EOMI, anicteric. No oral lesions noted. NECK: Supple. There is no cervical, supraclavicular or axillary lymphadenopathy noted. LUNGS: Clear. No wheezing, rhonchi or rales. HEART: Regular rate and rhythm. ABDOMEN: Soft, nontender. No hepatosplenomegaly. EXTREMITIES: No pedal edema. NEUROLOGIC: Awake, alert, oriented times three SKIN: No significant lesions are noted. ASSESSMENT 1. History of right lower extremity DVT in 2012, was treated with Coumadin for a few months and then she was placed on Plavix. 2. Antiphospholipid antibody syndrome. The patient does not recall how long ago she was diagnosed. However, she was under the care of a tension worker. 3. History of chronic kidney disease stage III and now it has progressed into end-stage renal disease. PLAN I have reviewed her available records. The patient is a very poor historian. She brought records from [place] and gave it to her primary physician, Dr. Steinberg. Those records are not available at the present time. I have requested the clinical secretary to get the records from Dr. Steinberg. The patient is currently on Plavix which I believe is for antiphospholipid antibody syndrome. She had only one episode of right lower extremity DVT. That was five years ago. I do not recommend any anticoagulation at this time, except that she would need antiplatelet agent such as Plavix. I will consult a tension worker for evaluation of antiphospholipid antibody syndrome. The antiphospholipid antibody panel was drawn and the result of that is still pending. We discussed that typically hematologists involved with antiphospholipid antibody syndrome when they have a blood clot. However, for the immunosuppressive treatment of the antiphospholipid antibody syndrome, it is managed by the tension worker. I have placed a consult for tension worker for further evaluation. The patient said that she used to see a tension worker in [place] which she could not remember the name, but she stated that it will be in her records which were given to her primary physician, Dr. Steinberg. The patient may benefit from kidney biopsy if this is an autoimmune disease which may have affected her kidneys. I will leave it up to Dr. Stahl to decide whether he would recommend kidney biopsy to evaluate for autoimmune nephritis. The tension worker will be able to assist the patient with the treatment for autoimmune disease. Thank you for asking my opinion. MD MACRINA Harden/ /9:08 PM /10:02 PM KAT
--- NOTE | 2016-07-14 23:22 | RADRPT ---
EXAM DATE/TIME: 07/14/2016 18:56 [facility] COMPARISON: No previous studies available for comparison. INDICATIONS : AVF placement. MEDICAL HISTORY : Hypertension. Deep venous thrombosis. Heart attack. Coronary artery disease. Anticoagulant therapy. Stage III renal failure. Juaquin's syndrome. SURGICAL HISTORY : section. CABG. ENCOUNTER: Initial ACUITY: 1 day PAIN SCORE: 0/10 LOCATION: Bilateral arms. FINDINGS: RIGHT UPPER EXTREMITY: There is spontaneous flow documented in the brachial, basilic, cephalic, axillary, and subclavian vei ns. The vessels are compressible and augmentation response is documented. No filling defects are se en. The flow is phasic with respiration. Direction of flow in the jugular vein is caudal. LEFT UPPER EXTREMITY: There is spontaneous flow documented in the brachial, basilic, cephalic, axillary, and subclavian vei ns. The vessels are compressible and augmentation response is documented. No filling defects are se en. The flow is phasic with respiration. Direction of flow in the jugular vein is caudal. CONCLUSION: No DVT. Elder Mckeon MD on July 14, 2016 at 23:20 Board Certified Radiologist. This report was verified electronically.
--- NOTE | 2016-07-14 23:27 | RADRPT ---
EXAM DATE/TIME: 07/14/2016 19:17 [facility] COMPARISON: No previous studies available for comparison. INDICATIONS : AVF placement. MEDICAL HISTORY : Hypertension. Deep venous thrombosis. Heart attack. Coronary artery disease. Anticoagulant therapy. Stage III renal failure. Juaquin's syndrome. SURGICAL HISTORY : section. CABG. ENCOUNTER: Initial ACUITY: 1 day PAIN SCORE: 0/10 LOCATION: Bilateral arms. CEPHALIC: ORIGIN: Right 2 mm Left 3 mm MID-ARM: Right 2 mm Left 4 mm ELBOW: Right 2 mm Left 3 mm FOREARM: Right 3 mm Left 5 mm WRIST: Right 2 mm Left 2 mm BASILIC: ORIGIN: Right 6 mm Left 5 mm MID-ARM: Right 6 mm Left 6 mm ELBOW: Right 5 mm Left 5 mm ARTERIES: BRACHIAL: Right 5 mm Left 4 mm ULNAR: Right 2 mm Left 5 mm RADIAL: Right Non-visualized Left 4 mm VEINS: RADIAL: Right 2 mm Left 4 mm ULNAR: Right 2 mm Left 3 mm FINDINGS: The venous system of the upper extremities are patent by color Doppler imaging. Measurements of the arm veins (in mm) are listed above. CONCLUSION: Venous mapping as delineated above. Elder Mckeon MD on July 14, 2016 at 23:25 Board Certified Radiologist. This report was verified electronically.
[2016-07-15] VITALS: BP 110/78; PULSE 74; RESP 16; TEMP 96.7; O2SAT 98
[2016-07-15 07:04] LABS: HEMATOCRIT 36.2 % (35.0-46.0); MEAN CORPUSCULAR HEMOGLOBIN 29.1 PG (27.0-34.0); MEAN CORPUSCULAR HGB CONC 33.4 % (32.0-36.0); PLATELET COUNT 143 TH/MM3 (150-450); RED BLOOD COUNT 4.16 MIL/MM3 (4.00-5.30); RED CELL DISTRIBUTION WIDTH 14.5 % (11.6-17.2); REVIEW FLAG FINAL; WHITE BLOOD COUNT 3.6 TH/MM3 (4.0-11.0)
[2016-07-15 07:26] LABS: BICARBONATE 25.9 MEQ/L (21.0-32.0); POTASSIUM 3.6 MEQ/L (3.5-5.1)
[2016-07-15 08:00] VITALS: BP 114/83; PULSE 79; RESP 18; TEMP 97; O2SAT 100
[2016-07-15 09:00] VITALS: O2SAT 100
[2016-07-15] MEDS: CLOPIDOGREL 75 MG TAB PO SCH (09:00)
--- NOTE | 2016-07-15 09:33 | HHI.NPPN ---
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, CKD approached ESRD Review of Systems General Constitutional: Fatigue Objective Data Data 07/14/16 07/15/16 19:00 07:00 Intake Total 480 ml 480 ml Output Total 1000 ml Balance -520 ml 480 ml Intake Oral 480 ml 480 ml Output Hemodialysis 1000 ml # Voids 2 2 # Bowel Movements 0 0 Vital Signs Date Time Temp Pulse Resp B/P Pulse Ox O2 Delivery O2 Flow Rate FiO2 07/15/16 09:00 100 07/15/16 08:00 97.0 79 18 114/83 100 07/15/16 00:00 96.7 74 16 110/78 98 07/14/16 20:08 97.9 75 18 114/83 100 07/14/16 18:56 Room Air 07/14/16 16:19 127/99 07/14/16 16:10 96.9 80 16 115/85 98 07/14/16 12:00 97.4 63 16 166/111 100 -: 07/15/16 0631 07/15/16 0631 Physical Exam General Appearance: Well Developed, Well Nourished Neck Neck Exam: Neck Supple Pulmonary Resp Exam: Clear Bilaterally, Breath Sounds Equal Cardiology CV Exam: Regular, Normal Sinus Rhythm Gastrointestinal/Abdomen GI Exam: Soft, Non-Tender, Bowel Sounds Present Extremeties Extremities Exam: No Edema Neurologic Neuro Exam: Alert, Awake, Oriented Assessment/Plan Problem List: (1) ESRD (end stage renal disease) Plan: Patient is explained that she has advanced kidney disease Likely due to APS, Small echogenic kidneys indicating ESRD Vascath in place Explained the kidney biopsy she is on Plavix which was not given yesterday will hold and consult Radiology for biopsy appreciate Dr. Garcia input, she has vague history of APS, will need records she now wants PD catheter and will consult GS to have this placed seen during HD 1 L UF (2) HTN (hypertension) Plan: Continue monitor in the hospital (3) CAD (coronary artery disease) Plan: Status post CABG (4) Valdez syndrome Plan: Hematology consult appreciated Work Up for autoimmune and Anti phospholipid antibody ordered. Problem Qualifiers (1) HTN (hypertension): Qualified Code: I10 - Essential hypertension (2) CAD (coronary artery disease): Qualified Code: I25.10 - Coronary artery disease involving [place] coronary artery of [place] heart without angina pectoris Casey Stahl MD Jul 15, 2016 09:33
[2016-07-15] MEDS: EPOETIN ALFA 10,000 UNITS/ML VIAL IV PRN (09:45)
[2016-07-15] MEDS: HEPARIN SODIUM - IV 10,000 UNITS/10 ML VIAL PRN (10:30)
[2016-07-15] MEDS: GENTAMICIN SULFATE (DIALYSIS USE ONLY) 20 MG/2 ML VIAL IV PRN (10:30)
[2016-07-15 12:00] VITALS: BP 140/93; PULSE 98; RESP 18; TEMP 95.5; O2SAT 99
[2016-07-15] MEDS: SODIUM CHLORIDE 0.9% FLUSH 5 ML FLUSH FLUSH SCH ×2 (12:03→21:30)
[2016-07-15] MEDS: METOPROLOL SUCCINATE 50 MG EXTENDED RELEASE TAB PO SCH (12:04)
[2016-07-15] MEDS: HYDROCHLOROTHIAZIDE 25 MG TAB PO SCH (12:04)
[2016-07-15] MEDS: POTASSIUM CHLORIDE 20 MEQ CONTROLLED RELEASE TAB PO SCH (12:04)
[2016-07-15] MEDS: CILOSTAZOL 100 MG TAB PO SCH ×2 (12:05→21:30)
[2016-07-15] MEDS: HEPARIN SODIUM - SQ 10,000 UNITS/ML VIAL SQ SCH (12:05)
--- NOTE | 2016-07-15 12:16 | PD.ONC.PN ---
Subjective Subjective Remarks Afebrile overnight. Patient resting comfortably. She is just back from HD and feeling tired. No pain. No bleeding. Objective Data Date Time Temp Pulse Resp B/P Pulse Ox O2 Delivery O2 Flow Rate FiO2 07/15/16 09:00 100 07/15/16 08:00 97.0 79 18 114/83 100 07/15/16 00:00 96.7 74 16 110/78 98 07/14/16 20:08 97.9 75 18 114/83 100 07/14/16 18:56 Room Air 07/14/16 16:19 127/99 07/14/16 16:10 96.9 80 16 115/85 98 07/15/16 07/15/16 07/15/16 07:00 15:00 23:00 Intake Total 240 ml Output Total 1000 ml Balance 240 ml -1000 ml Result Diagram: 07/15/1663007/15/16630 Laboratory Results Laboratory Tests Test 07/15/16 06:31 White Blood Count 3.6 TH/MM3 Red Blood Count 4.16 MIL/MM3 Hemoglobin 12.1 GM/DL Hematocrit 36.2 % Mean Corpuscular Volume 87.0 FL Mean Corpuscular Hemoglobin 29.1 PG Mean Corpuscular Hemoglobin 33.4 % Concent Red Cell Distribution Width 14.5 % Platelet Count 143 TH/MM3 Mean Platelet Volume 9.5 FL Sodium Level 136 MEQ/L Potassium Level 3.6 MEQ/L Chloride Level 101 MEQ/L Carbon Dioxide Level 25.9 MEQ/L Anion Gap 9 MEQ/L Blood Urea Nitrogen 44 MG/DL Creatinine 5.58 MG/DL Estimat Glomerular Filtration 10 ML/MIN Rate Random Glucose 88 MG/DL Calcium Level 8.2 MG/DL Administered Medications Medications (Trade) Dose Ordered Sig/Hunter Route PRN Reason Start Time Stop Time Status Last Admin Dose Admin IV Flush (NS Flush) 2 ml BID FLUSH 07/14/16 09:00 07/15/16 12:03 Cilostazol (Pletal) 100 mg BID PO 07/14/16 09:00 07/15/16 12:05 Hydrochlorothiazide (Hydrodiuril) 25 mg DAILY PO 07/14/16 09:00 07/15/16 12:04 Metoprolol Succinate (Toprol Xl) 50 mg DAILY PO 07/14/16 09:00 07/15/16 12:04 Heparin Sodium (Porcine) 5000 units 5,000 units Q12H SQ 07/13/16 22:30 07/15/16 12:05 Sodium Chloride (NS 1000 ml Inj) 1,000 ml @ 0 mls/hr Q0M PRN IV For Prime & Rinse Back 07/14/16 09:53 07/14/16 13:41 Heparin Sodium (Porcine) (Heparin Inj) UNSCH PRN .XX WITH DIALYSIS 07/14/16 10:00 07/15/16 10:30 Gentamicin Sulfate (Gentamicin (Dialysis) Inj) 20 mg UNSCH PRN IV WITH DIALYSIS 07/14/16 10:00 07/15/16 10:30 Clonidine (Catapres) 0.1 mg UNSCH PRN PO for BP > 180/100 X 2 readings 07/14/16 10:00 07/14/16 14:34 Epoetin Delvis (Epogen Inj) 4,000 units UNSCH PRN IV WITH DIALYSIS 07/14/16 10:00 07/15/16 09:45 Potassium Chloride (KCl) 20 meq DAILY PO 07/15/16 09:00 07/15/16 12:04 Objective Remarks GENERAL: Middle aged female, sitting up in chair next to bed in [facility]. SKIN: Warm and dry. vascath right neck, no bleeding. HEAD: Normocephalic. EYES: No injection or drainage. NECK: Supple, trachea midline. CARDIOVASCULAR: Regular rate and rhythm RESPIRATORY: Breath sounds equal bilaterally. No accessory muscle use. GASTROINTESTINAL: Abdomen soft, non-tender, nondistended. EXTREMITIES: No cyanosis NEUROLOGICAL: No obvious focal deficit. Awake, alert, and oriented x3. Assessment/Plan Problem List: (1) Antiphospholipid antibody syndrome Status: Acute Plan: --Rheumatology has been consulted --patient was seeing rheumatology in [place] (2) History of DVT (deep vein thrombosis) Status: Acute Plan: --had DVT in 2011 and was on coumadin --now on Plavix only and has not had repeat DVT (3) ESRD (end stage renal disease) Status: Acute Plan: --on hemodialysis Assessment 50y/o female with antiphospholipid antibody syndrome. h/o hypertension, coronary artery disease, chronic renal failure, chronic kidney disease stage III Attending Statement no new c/o APL panel pending. Records from [place] were given to DR DEL CID. We need those records. Await rheumatology consult May need Kidney bx. Hold plavix. The exam, history, and the medical decision-making described in the above note were completed with the assistance of the mid-level provider. I reviewed and agree with the findings presented. I attest that I had a [id number] encounter with the patient on the same day, and personally performed and documented my assessment and findings in the medical record. Mary Joshi Jul 15, 2016 12:16 Miguel Garcia MD Jul 15, 2016 18:26
--- NOTE | 2016-07-15 13:01 | HHI.FPPN ---
Subjective Remarks Patient is doing okay this morning, states she is somewhat fatigued. She had questions about getting peritoneal dialysis and wanted to know when she can go home. She denied chest pain, shortness of breath, fever, chills, nausea, vomiting, diarrhea, abdominal pain. (Genny Steinberg MD R1) Objective Vitals Vital Signs Date Time Temp Pulse Resp B/P Pulse Ox O2 Delivery O2 Flow Rate FiO2 07/15/16 09:00 100 07/15/16 08:00 97.0 79 18 114/83 100 07/15/16 00:00 96.7 74 16 110/78 98 07/14/16 20:08 97.9 75 18 114/83 100 07/14/16 18:56 Room Air 07/14/16 16:19 127/99 07/14/16 16:10 96.9 80 16 115/85 98 I/O 07/14/16 07/14/16 07/14/16 07/15/16 07/15/16 07/15/16 07:00 15:00 23:00 07:00 15:00 23:00 Intake Total 240 ml 480 ml 240 ml 240 ml Output Total 1000 ml 1000 ml Balance 240 ml 480 ml -760 ml 240 ml -1000 ml Intake Oral 240 ml 480 ml 240 ml 240 ml Output Hemodialysis 1000 ml 1000 ml # Voids 1 2 1 1 # Bowel Movements 0 0 0 0 (Genny Steinberg MD R1) Result Diagram: 07/15/1631 07/15/16 0631 Objective Remarks GENERAL: This is a well-developed female patient, in no apparent distress. SKIN: No rashes, ecchymoses or lesions. Cool and dry. HEAD: Atraumatic. Normocephalic. No temporal or scalp tenderness. EYES: Pupils equal round and reactive. Extraocular motions intact. No scleral icterus. No injection or drainage. ENT: Nose without bleeding, purulent drainage or septal hematoma. MMM. Uvula midline. Airway patent. NECK: Trachea midline. No JVD or lymphadenopathy. Supple, nontender, no meningeal signs. CARDIOVASCULAR: Regular rate and rhythm. 2/6 holosystolic murmur louder than previous day's exam. RESPIRATORY: Clear to auscultation. Breath sounds equal bilaterally. No wheezes , rales, or rhonchi. GASTROINTESTINAL: Abdomen soft, non-tender, nondistended. No hepato-splenomegaly , or palpable masses. No guarding. No CVA tenderness. MUSCULOSKELETAL: Extremities without clubbing, cyanosis, or edema. No joint tenderness, effusion, or edema noted. No calf tenderness. NEUROLOGICAL: Awake and alert. Cranial nerves II through XII intact. Motor and sensory grossly within normal limits. Normal speech. PSYCHIATRIC: Appropriate insight and judgement. (Genny Steinberg MD R1) A/P Assessment and Plan Patient is a 50-year-old female with a past medical history significant for HTN , CAD s/p CABG, CKD, and Valdez syndrome admitted for ESRD. We'll discuss with Dr. Smith and Dr. Hodges Discharge Planning Pending nephrology recommendations after patient receives hemodialysis as an inpatient. (Genny Steinberg MD R1) Attending Attestation Patient seen and examined. Case reviewed and discussed Agree with plan of care as discussed with me and documented in the resident note. (Angélica Hodges MD) Problem List: (1) ESRD (end stage renal disease) Status: Acute Plan: -Creatinine elevated at 6.73 at admission, down to 5.58 today. Patient has received 2 dialysis treatments, with 1 L of fluid removed at each -Renal ultrasound shows small echogenic kidneys consistent with medical renal disease -Medical Office Receptionist Assistant Dr. Stahl on board -Patient is a candidate for peritoneal dialysis and is scheduled for laparoscopic PD catheter placement tomorrow 07/16 -Continue strict Is & Os (2) HTN (hypertension) Status: Chronic Plan: -BP 157/92 on admission -Continue home dose of HCTZ 25mg PO daily -Hydralazine 10mg PO Q8H PRN BP >160/90 (3) CAD (coronary artery disease) Status: Acute Plan: -Continue home dose of Plavix 75mg PO daily and Metoprolol 50mg PO daily (4) Valdez syndrome Status: Acute Plan: -Continue home dose of Cilostazol 100mg PO BID -Rheumatology consulted - appreciate recommendations's (5) Anemia Status: Acute Plan: H&H on admission 11.6/33.9 -H&H 12.1 and 36.2, today - wnl -Continue to monitor (6) Nutrition, metabolism, and development symptoms Status: Acute Plan: Fluids: None Electrolytes: 20meq daily K supplementation Continue to monitor other electrolytes and replace as needed Nutrition: Renal Diet DVT PPx: Heparin 5000units SQ Q12H, bilateral SCDs (Genny Steinberg MD R1) Problem Qualifiers (1) HTN (hypertension): Qualified Code: I10 - Essential hypertension (2) CAD (coronary artery disease): Qualified Code: I25.10 - Coronary artery disease involving [place] coronary artery of [place] heart without angina pectoris (3) Anemia: Qualified Code: D64.9 - Anemia, unspecified type Genny Steinberg MD R1 Jul 15, 2016 13:01 Angélica Hodges MD Jul 24, 2016 12:28
[2016-07-15 14:47] LABS: ANA SCREEN POS (NEG)
[2016-07-15 16:07] VITALS: BP 136/79; PULSE 79; RESP 16; TEMP 98.5; O2SAT 98
[2016-07-15] MEDS: SODIUM CHLORID 0.9% 500 ML IV SCH (18:45)
[2016-07-15] MEDS: LACTATED RINGER'S 1000 ML IV SCH (18:45)
[2016-07-15] MEDS ORDERED: INSULIN HUMAN REGULAR 1,000 UNITS/10 ML VIAL SQ PRN (18:45)
[2016-07-15] MEDS ORDERED: METOPROLOL TARTRATE 25 MG TAB PO PRN (18:45)
[2016-07-15 19:36] VITALS: BP 118/85; PULSE 81; RESP 14; TEMP 98.6; O2SAT 98
--- NOTE | 2016-07-15 21:00 | MB ---
cc: LADAN NOWAK DATE OF CONSULTATION: 07/13/2016 REASON FOR CONSULTATION: Placement PD catheter. HISTORY OF PRESENT ILLNESS Ms. Gandhi is a very pleasant 50 year-old -Faroese female, who unfortunately has end-stage renal failure and requires dialysis. She is currently undergoing hemodialysis via a right IJ Vas-Cath. She was counseled on hemodialysis versus peritoneal dialysis and the patient elected peritoneal dialysis. The patient saw Dr. Stahl who requested surgical consultation for placement of a peritoneal dialysis catheter. PAST MEDICAL HISTORY: 1. Valdez syndrome. 2. End-stage renal disease 3. Hypertension 4. DVT. PAST SURGICAL HISTORY: CABG. MEDICATIONS: Extensive, please see the EMR. ALLERGIES: HMG-CoA reductase inhibitors. SOCIAL HISTORY: She does not smoke or drink. She lives here locally with her family. FAMILY HISTORY: Noncontributory. PHYSICAL EXAMINATION VITAL SIGNS: Temperature is 98, pulse is 80, blood pressure 130/70, respiratory rate is 20. GENERAL: A pleasant, thin, -Faroese female sitting in her hospital chair watching television in no distress. HEENT: Sclera white. Pupils are reactive. Oropharynx is clear and moist. NECK: Supple. LUNGS: Clear to auscultation bilaterally. HEART: S1-S2, no murmur. ABDOMEN: Soft, non-tender, non-distended. Active bowel sounds. No obvious hernia. EXTREMITIES: Free range of motion x4. NEUROLOGIC: Alert and oriented x 3. LABORATORY DATA: White blood cell count 3, hemoglobin 12, platelet count 143. Electrolytes are basically within normal limits except for a BUN of 44, creatinine 5.58. Calcium of 8.2. IMPRESSION: End-stage renal disease requiring peritoneal dialysis. PLAN Risks and benefits of the laparoscopic peritoneal dialysis catheter placement was discussed with the patient and she is agreeable. The patient normally takes anticoagulants but has been off of them for several days. She is currently getting heparin in the hospital and will go ahead and hold that for surgery tomorrow. The risks and benefits of laparoscopic PD catheter placement was reviewed with her in detail and she is agreeable. Operating room was notified and the patient will be scheduled tomorrow with Dr. Robert and myself. We have a surgery before her and then she will follow immediately. The patient is agreeable to the placement. MD LIZANDRO Ferreira /5:08 PM /8:42 PM
[2016-07-16 00:40] VITALS: BP 123/88; PULSE 71; RESP 18; TEMP 97.3; O2SAT 95
[2016-07-16 04:34] VITALS: BP 110/75; PULSE 70; RESP 18; TEMP 98.1; O2SAT 97
[2016-07-16 07:01] LABS: HEMATOCRIT 32.3 % (35.0-46.0); MEAN CELL VOLUME 86.4 FL (80.0-100.0); MEAN CORPUSCULAR HEMOGLOBIN 29.1 PG (27.0-34.0); MEAN CORPUSCULAR HGB CONC 33.7 % (32.0-36.0); PLATELET COUNT 94 TH/MM3 (150-450); RED BLOOD COUNT 3.74 MIL/MM3 (4.00-5.30); RED CELL DISTRIBUTION WIDTH 14.2 % (11.6-17.2)
[2016-07-16 07:13] LABS: REVIEW FLAG AUTO DIFF
[2016-07-16 07:31] LABS: BICARBONATE 31.7 MEQ/L (21.0-32.0); POTASSIUM 4.1 MEQ/L (3.5-5.1)
[2016-07-16] MEDS: SODIUM CHLORIDE 0.9% FLUSH 5 ML FLUSH FLUSH SCH ×2 (08:47→21:31)
[2016-07-16] MEDS: METOPROLOL SUCCINATE 50 MG EXTENDED RELEASE TAB PO SCH (08:50)
[2016-07-16] MEDS: POTASSIUM CHLORIDE 20 MEQ CONTROLLED RELEASE TAB PO SCH (08:50)
[2016-07-16] MEDS: HYDROCHLOROTHIAZIDE 25 MG TAB PO SCH (08:50)
[2016-07-16] MEDS: SODIUM CHLOR 0.9% 1000 ML INJ 1,000 ML IV PRN (08:51)
[2016-07-16] MEDS: CILOSTAZOL 100 MG TAB PO SCH (08:53)
--- NOTE | 2016-07-16 08:56 | HHI.FPPN ---
Subjective Remarks Ms Gandhi is doing well this morning. She was sitting in a chair waiting to be picked up for peritoneal dialysis catheter placement. She has no complaints - denies fatigue, fever, chills, nausea, vomiting, or abdominal pain. (Genny Steinberg MD R1) Objective Vitals Vital Signs Date Time Temp Pulse Resp B/P Pulse Ox O2 Delivery O2 Flow Rate FiO2 07/16/16 04:34 98.1 70 18 110/75 97 07/16/16 00:40 97.3 71 18 123/88 95 07/15/16 19:36 98.6 81 14 118/85 98 07/15/16 16:07 98.5 79 16 136/79 98 07/15/16 12:00 95.5 98 18 140/93 99 07/15/16 12:00 Room Air 07/15/16 09:00 100 I/O 07/15/16 07/15/16 07/15/16 07/16/16 07/16/16 07/16/16 07:00 15:00 23:00 07:00 15:00 23:00 Intake Total 240 ml 360 ml 240 ml 0 ml Output Total 1000 ml Balance 240 ml -640 ml 240 ml 0 ml Intake Oral 240 ml 360 ml 240 ml 0 ml Output Hemodialysis 1000 ml # Voids 1 2 3 1 # Bowel Movements 0 0 0 0 (Genny Steinberg MD R1) Result Diagram: 07/16/16 0609 07/16/16 0609 Objective Remarks GENERAL: This is a well-developed female patient, in no apparent distress. SKIN: No rashes, ecchymoses or lesions. Cool and dry. HEAD: Atraumatic. Normocephalic. No temporal or scalp tenderness. EYES: Pupils equal round and reactive. Extraocular motions intact. No scleral icterus. No injection or drainage. ENT: Nose without bleeding, purulent drainage or septal hematoma. MMM. Uvula midline. Airway patent. Hemodialysis catheter present on right neck NECK: Trachea midline. No JVD or lymphadenopathy. Supple, nontender, no meningeal signs. CARDIOVASCULAR: Regular rate and rhythm. 2/6 holosystolic murmur. RESPIRATORY: Clear to auscultation. Breath sounds equal bilaterally. No wheezes , rales, or rhonchi. GASTROINTESTINAL: Abdomen soft, non-tender, nondistended. No hepato-splenomegaly , or palpable masses. No guarding. MUSCULOSKELETAL: Extremities without clubbing, cyanosis, or edema. No joint tenderness, effusion, or edema noted. NEUROLOGICAL: Awake and alert. Cranial nerves II through XII intact. Motor and sensory grossly within normal limits. Normal speech. PSYCHIATRIC: Appropriate insight and judgement. (Genny Steinberg MD R1) A/P Assessment and Plan Patient is a 50-year-old female with a past medical history significant for HTN , CAD s/p CABG, CKD, and Valdez syndrome admitted for ESRD. Hemodialysis was initiated with a temporary catheter and patient was deemed a candidate for peritoneal dialysis. General surgery was consulted and the peritoneal dialysis catheter was successfully placed on 07/16. Discussed with Dr. Hodges and Dr. Montano, PGY 2 Discharge Planning Pending nephrology recommendations after peritoneal catheter placement. (Genny Steinberg MD R1) Attending Attestation Patient seen and examined. Case reviewed and discussed Agree with plan of care as discussed with me and documented in the resident note. (Angélica Hodges MD) Problem List: (1) ESRD (end stage renal disease) Status: Acute Plan: -Creatinine elevated at 6.73 at admission, down to 5.35 today. Patient has received 2 dialysis treatments, with 1 L of fluid removed at each treatment -Renal ultrasound shows small echogenic kidneys consistent with medical renal disease -Extrusion Die Template Maker Dr. Stahl on board -Patient is a candidate for peritoneal dialysis and laparoscopic PD catheter placement was successfully performed on 07/16 -Continue strict Is & Os (2) Pancytopenia Status: Acute Plan: -WBC 3.0 -H&H 10.9/32.3 -Platelets 94, down from 143 yesterday 07/15 -Will order HIT antibody due to pt receiving heparin flushes for dialysis -Requested input from hematology -Continue to monitor (3) HTN (hypertension) Status: Chronic Plan: -BP 157/92 on admission -Continue home dose of HCTZ 25mg PO daily -Hydralazine 10mg PO Q8H PRN BP >160/90 (4) CAD (coronary artery disease) Status: Acute Plan: -Continue home dose of Plavix 75mg PO daily and Metoprolol 50mg PO daily (5) Valdez syndrome Status: Acute Plan: -Continue home dose of Cilostazol 100mg PO BID -Rheumatology consulted - appreciate recommendations (6) Nutrition, metabolism, and development symptoms Status: Acute Plan: Fluids: None Electrolytes: 20meq daily K supplementation Continue to monitor other electrolytes and replace as needed Nutrition: Renal Diet DVT PPx: Bilateral SCDs (Genny Steinberg MD R1) Problem Qualifiers (1) HTN (hypertension): Qualified Code: I10 - Essential hypertension (2) CAD (coronary artery disease): Qualified Code: I25.10 - Coronary artery disease involving [place] coronary artery of [place] heart without angina pectoris Genny Steinberg MD R1 Jul 16, 2016 08:56 Angélica Hodges MD Jul 17, 2016 13:22
[2016-07-16] MEDS: SODIUM CHLORID 0.9% 500 ML IV SCH (09:00)
[2016-07-16] MEDS ORDERED: MIDAZOLAM HCL 2 MG/2 ML VIAL ONE (09:36)
[2016-07-16] MEDS ORDERED: BUPIVACAINE/EPINEPHRINE 0.25% PF 30 ML VIAL ONE (09:38)
[2016-07-16] MEDS ORDERED: FAMOTIDINE 20 MG/2 ML VIAL ONE (09:40)
[2016-07-16] MEDS ORDERED: ACETAMINOPHEN 1000 MG/100 ML VIAL IV ONE (09:40)
[2016-07-16] MEDS ORDERED: ceFAZolin 2 GM PREMIX 50 ML ONE (10:11)
[2016-07-16 11:13] VITALS: BP 121/85; PULSE 79; RESP 18; TEMP 96.6; O2SAT 100
[2016-07-16] MEDS ORDERED: MORPHINE SULFATE 4 MG/ML INJ IV PUSH PRN (11:15)
[2016-07-16] MEDS ORDERED: ACETAMINOPHEN/HYDROcodone 325 MG/7.5 MG TAB PO PRN (11:15)
--- NOTE | 2016-07-16 11:16 | PD.ONC.PN ---
Subjective Subjective Remarks Afebrile overnight. Patient seen at 8AM. She is about to go for peritoneal dialysis catheter placement. No overnight events. Objective Data Date Time Temp Pulse Resp B/P Pulse Ox O2 Delivery O2 Flow Rate FiO2 07/16/16 04:34 98.1 70 18 110/75 97 07/16/16 00:40 97.3 71 18 123/88 95 07/15/16 19:36 98.6 81 14 118/85 98 07/15/16 16:07 98.5 79 16 136/79 98 07/15/16 12:00 95.5 98 18 140/93 99 07/15/16 12:00 Room Air 07/16/16 07/16/16 07/16/16 07:00 15:00 23:00 Intake Total 0 ml Balance 0 ml Result Diagram: 07/16/16 0609 07/16/16 0609 Laboratory Results Laboratory Tests Test 07/16/16 06:09 White Blood Count 3.0 TH/MM3 Red Blood Count 3.74 MIL/MM3 Hemoglobin 10.9 GM/DL Hematocrit 32.3 % Mean Corpuscular Volume 86.4 FL Mean Corpuscular Hemoglobin 29.1 PG Mean Corpuscular Hemoglobin 33.7 % Concent Red Cell Distribution Width 14.2 % Platelet Count 94 TH/MM3 Mean Platelet Volume 9.2 FL Sodium Level 133 MEQ/L Potassium Level 4.1 MEQ/L Chloride Level 94 MEQ/L Carbon Dioxide Level 31.7 MEQ/L Anion Gap 7 MEQ/L Blood Urea Nitrogen 26 MG/DL Creatinine 5.35 MG/DL Estimat Glomerular Filtration 10 ML/MIN Rate Random Glucose 97 MG/DL Calcium Level 8.4 MG/DL Administered Medications Medications (Trade) Dose Ordered Sig/Hunter Route PRN Reason Start Time Stop Time Status Last Admin Dose Admin IV Flush (NS Flush) 2 ml BID FLUSH 07/14/16 09:00 07/16/16 08:47 Cilostazol (Pletal) 100 mg BID PO 07/14/16 09:00 07/16/16 08:53 Hydrochlorothiazide (Hydrodiuril) 25 mg DAILY PO 07/14/16 09:00 07/16/16 08:50 Metoprolol Succinate (Toprol Xl) 50 mg DAILY PO 07/14/16 09:00 07/16/16 08:50 Heparin Sodium (Porcine) 5000 units 5,000 units Q12H SQ 07/13/16 22:30 Hold 07/15/16 12:05 Sodium Chloride (NS 1000 ml Inj) 1,000 ml @ 0 mls/hr Q0M PRN IV For Prime & Rinse Back 07/14/16 09:53 07/16/16 08:51 Heparin Sodium (Porcine) (Heparin Inj) UNSCH PRN .XX WITH DIALYSIS 07/14/16 10:00 07/15/16 10:30 Gentamicin Sulfate (Gentamicin (Dialysis) Inj) 20 mg UNSCH PRN IV WITH DIALYSIS 07/14/16 10:00 07/15/16 10:30 Clonidine (Catapres) 0.1 mg UNSCH PRN PO for BP > 180/100 X 2 readings 07/14/16 10:00 07/14/16 14:34 Epoetin Dlevis (Epogen Inj) 4,000 units UNSCH PRN IV WITH DIALYSIS 07/14/16 10:00 07/15/16 09:45 Potassium Chloride (KCl) 20 meq DAILY PO 07/15/16 09:00 07/16/16 08:50 Objective Remarks GENERAL: Middle aged female, walking around room in [facility]. SKIN: Warm and dry. HEAD: Normocephalic. EYES: No injection or drainage. NECK: Supple, trachea midline. CARDIOVASCULAR: Regular rate and rhythm RESPIRATORY: Breath sounds equal bilaterally. No accessory muscle use. GASTROINTESTINAL: Abdomen soft, non-tender, nondistended. EXTREMITIES: No cyanosis NEUROLOGICAL: awake and alert, normal speech. Assessment/Plan Problem List: (1) Antiphospholipid antibody syndrome Status: Acute Plan: --Rheumatology has been consulted --patient was seeing rheumatology and hematology in [place]--records obtained from hematology and placed in chart (2) History of DVT (deep vein thrombosis) Status: Acute Plan: --had DVT in 2011 and was on coumadin --now on Plavix only and has not had repeat DVT (3) ESRD (end stage renal disease) Status: Acute Plan: --on hemodialysis (4) Thrombocytopenia Status: Acute Plan: --previously on Plavix, now on Pletal Assessment 50y/o female with antiphospholipid antibody syndrome. h/o hypertension, coronary artery disease, chronic renal failure, chronic kidney disease stage III Attending Statement no new c/o Rheumatology services are not available in this hosp anymore. She will need rheum consult as outpt. Records from [facility] reviewed. She had DVT and atreial thombosis. await renal bx will follow. Mary Joshi Jul 16, 2016 11:16 Miguel Garcia MD Jul 16, 2016 20:39
[2016-07-16] MEDS ORDERED: ONDANSETRON HCL 4 MG/2 ML VIAL IV PUSH ONE (11:27)
[2016-07-16] MEDS ORDERED: NEOSTIGMINE 3 MG/3 ML SYR IV ONE (11:27)
[2016-07-16] MEDS ORDERED: PROPOFOL 200 MG/20 ML AMP IV ONE (11:27)
[2016-07-16] MEDS ORDERED: PHENYLEPH/NS 1000 MCG/10 ML SYR IV ONE (11:27)
[2016-07-16 12:00] VITALS: BP 114/58; PULSE 64; RESP 18; TEMP 100.4; O2SAT 92
--- NOTE | 2016-07-16 13:26 | MP ---
cc: LADAN NOWAK M.D. DATE OF SURGERY: 07/16/2016 PREOPERATIVE DIAGNOSIS End-stage renal disease requiring dialysis. POSTOPERATIVE DIAGNOSIS Endstage renal disease requiring dialysis. PROCEDURE PERFORMED Laparoscopic assisted peritoneal dialysis catheter placement. SURGEON Ladan Nowak MD WEAPONS OFFICER Elijah Robert MD ANESTHESIA General endotracheal. COMPLICATIONS None. INDICATION FOR PROCEDURE Ms. Gandhi is a very pleasant 50-year-old -[place] female who unfortunately has end-stage renal disease and requires dialysis. She was offered hemodialysis versus peritoneal dialysis. She was seen by Dr. Stahl her tire technician. The patient requested peritoneal dialysis. Surgical consultation was requested. Risks and benefits of peritoneal dialysis catheter placement was discussed with her and she was agreeable. DETAILS OF PROCEDURE The patient was identified, brought to the operating room and placed supine on the operating table. After adequate general endotracheal anesthesia was achieved the abdomen was prepped and draped in standard surgical fashion. 0.25% Marcaine was injected into the skin and subcutaneous tissue in the left upper quadrant. A transverse incision was made. Dissection was carried down to the anterior abdominal fascia which was entered bluntly with a hemostat. A blunt 5-mm port was then inserted without the trocar. Abdomen was insufflated to 15 mmHg using CO2 gas. Next the 30 degree laparoscope was inserted. There is no evidence of injury to the abdominal contents during the entry of the port. Attention was now directed to the right lower quadrant. A 5-mm trocar was placed in the left lower quadrant under direct vision after anesthetizing the skin and subcutaneous tissue with 0.25% Marcaine. A site was selected just below and inferior to the umbilicus for the catheter insertion site. 0.25% Marcaine was injected and a transverse incision was made. A 5-mm trocar was then tunneled in the subcutaneous tissue into the preperitoneal space just to the right of the midline. Peritoneum was then entered with the trocar. Next, the peritoneal dialysis catheter was advanced through the trocar and placed down into the pelvis behind the uterus. The patient's uterus was fixated up to the anterior abdominal wall from her previous . Catheter had plenty of room in the pelvis and was not obstructed. Once the catheter was placed the trocar was then removed. Catheter was then tunneled with a tunneling device over the right lower quadrant to make sure both cuffs were in the subcutaneous tissue away from the insertion sites. Once this was accomplished the catheter was hooked up to 3 liters of warm saline solution. Approximately 2 liters was infused in and then 1800 was retrieved back, leaving about 200 ccs of saline in the peritoneal cavity. Catheter flushed well and had no problems. At this point the catheter was photographed in place. Attention was now directed to closure. The abdomen was carefully desufflated. Port was removed under direct vision. Anterior abdominal wall fascia was closed with 0 Vicryl in [id number] fashion. Skin was closed with 4-0 Vicryl. The patient tolerated the procedure well, was awakened and brought to recovery in stable condition. Ladan MD ADAM Nowak/CELIA /11:10 AM /1:08 PM
--- NOTE | 2016-07-16 14:08 | HHI.NPPN ---
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, CKD approached ESRD Review of Systems General Constitutional: Fatigue Objective Data Data 07/15/16 07/16/16 19:00 07:00 Intake Total 360 ml 240 ml Output Total 1000 ml Balance -640 ml 240 ml Intake Oral 360 ml 240 ml Output Hemodialysis 1000 ml # Voids 2 4 # Bowel Movements 0 0 Vital Signs Date Time Temp Pulse Resp B/P Pulse Ox O2 Delivery O2 Flow Rate FiO2 07/16/16 12:00 100.4 64 18 114/58 92 07/16/16 11:30 98.5 68 12 125/81 98 Room Air 07/16/16 11:15 72 10 129/92 99 Nasal Cannula 2 07/16/16 11:13 96.6 79 18 121/85 100 07/16/16 11:00 98.6 84 12 143/91 100 Nasal Cannula 3 07/16/16 04:34 98.1 70 18 110/75 97 07/16/16 00:40 97.3 71 18 123/88 95 07/15/16 19:36 98.6 81 14 118/85 98 07/15/16 16:07 98.5 79 16 136/79 98 -: 07/16/16 0609 07/16/16 0609 Physical Exam General Appearance: Well Developed, Well Nourished Neck Neck Exam: Neck Supple Pulmonary Resp Exam: Clear Bilaterally, Breath Sounds Equal Cardiology CV Exam: Regular, Normal Sinus Rhythm Gastrointestinal/Abdomen GI Exam: Soft, Non-Tender, Bowel Sounds Present Extremeties Extremities Exam: No Edema Neurologic Neuro Exam: Alert, Awake, Oriented Assessment/Plan Problem List: (1) ESRD (end stage renal disease) Plan: Patient is explained that she has advanced kidney disease 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 Problem Qualifiers (1) HTN (hypertension): Qualified Code: I10 - Essential hypertension (2) CAD (coronary artery disease): Qualified Code: I25.10 - Coronary artery disease involving [place] coronary artery of [place] heart without angina pectoris Favio,Sajid MD Jul 16, 2016 14:08
[2016-07-16 15:54] LABS: THROMBIN TIME FOR LA ND sec (13-19)
[2016-07-16 16:20] VITALS: BP 129/86; PULSE 73; RESP 22; TEMP 96.7; O2SAT 100
[2016-07-16] MEDS: LACTATED RINGER'S 1000 ML IV SCH (18:45)
[2016-07-16 20:00] VITALS: BP 159/108; PULSE 76; RESP 18; TEMP 96.4; O2SAT 100
[2016-07-17 01:14] VITALS: BP 142/94; PULSE 70; RESP 20; TEMP 96.5; O2SAT 100
[2016-07-17 03:54] LABS: PHOS SERINE AB IGA LESS THAN 20 U/mL (()); PHOS SERINE AB IGG LESS THAN 10 U/mL (()); PHOS SERINE AB IGM LESS THAN 25 U/mL (())
[2016-07-17 04:00] VITALS: BP 142/101; PULSE 68; RESP 16; TEMP 96.3; O2SAT 99
[2016-07-17 06:36] LABS: AUTOMATED NEUTROPHIL # 4.6 TH/MM3 (1.8-7.7); BASOPHIL % 0.1 % (0.0-2.0); EOSINOPHIL % 0.1 % (0.0-4.0); HEMATOCRIT 30.1 % (35.0-46.0); HEMO FLAGS DIFF FINAL; LYMPH % 12.8 % (9.0-44.0); LYMPHOCYTE # 0.7 TH/MM3 (1.0-4.8); MEAN CELL VOLUME 86.2 FL (80.0-100.0); MEAN CORPUSCULAR HEMOGLOBIN 29.5 PG (27.0-34.0); MEAN CORPUSCULAR HGB CONC 34.3 % (32.0-36.0); MONO % 5.8 % (0.0-8.0); NEUT % 81.2 % (16.0-70.0); PLATELET COUNT 110 TH/MM3 (150-450); RED CELL DISTRIBUTION WIDTH 14.9 % (11.6-17.2); WHITE BLOOD COUNT 5.7 TH/MM3 (4.0-11.0)
[2016-07-17 07:14] LABS: ALKALINE PHOSPHATASE 73 U/L (45-117); ALT (GPT) 10 U/L (10-53); ANION GAP 9 MEQ/L (5-15); AST (GOT) 13 U/L (15-37); BICARBONATE 26.3 MEQ/L (21.0-32.0); BLOOD UREA NITROGEN 38 MG/DL (7-18); CHLORIDE 99 MEQ/L (98-107); GLOMERULAR FILTRATION RATE 9 ML/MIN (>89); POTASSIUM 4.5 MEQ/L (3.5-5.1); SODIUM (NA) 134 MEQ/L (136-145); TOTAL BILIRUBIN ADULT 0.3 MG/DL (0.2-1.0)
[2016-07-17 07:53] LABS: BETA2 GLYCOPROTEIN I AB IGA LESS THAN 9.0 SAU (< OR = 20)
[2016-07-17 08:00] VITALS: BP 154/97; PULSE 63; RESP 18; TEMP 96.4; O2SAT 100
[2016-07-17] MEDS: SODIUM CHLORIDE 0.9% FLUSH 5 ML FLUSH FLUSH SCH (09:00)
--- NOTE | 2016-07-17 10:26 | HHI.NPPN ---
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, CKD approached ESRD Review of Systems General Constitutional: Fatigue Objective Data Data 07/16/16 07/17/16 19:00 07:00 Intake Total 100 ml 630 ml Output Total 1000 ml Balance 100 ml -370 ml Intake Oral 630 ml Other 100 ml Output Urine Total 1000 ml # Voids 2 0 # Bowel Movements 0 0 Vital Signs Date Time Temp Pulse Resp B/P Pulse Ox O2 Delivery O2 Flow Rate FiO2 07/17/16 08:00 96.4 63 18 154/97 100 07/17/16 04:00 96.3 68 16 142/101 99 07/17/16 01:14 96.5 70 20 142/94 100 07/16/16 20:00 96.4 76 18 159/108 100 07/16/16 16:20 96.7 73 22 129/86 100 07/16/16 12:00 100.4 64 18 114/58 92 07/16/16 11:30 98.5 68 12 125/81 98 Room Air 07/16/16 11:15 72 10 129/92 99 Nasal Cannula 2 07/16/16 11:13 96.6 79 18 121/85 100 07/16/16 11:00 98.6 84 12 143/91 100 Nasal Cannula 3 -: 07/17/16 0611 07/17/16 0611 Physical Exam General Appearance: Well Developed, Well Nourished Neck Neck Exam: Neck Supple Pulmonary Resp Exam: Clear Bilaterally, Breath Sounds Equal Cardiology CV Exam: Regular, Normal Sinus Rhythm Gastrointestinal/Abdomen GI Exam: Soft, Non-Tender, Bowel Sounds Present Extremeties Extremities Exam: No Edema Neurologic Neuro Exam: Alert, Awake, Oriented Assessment/Plan Problem List: (1) ESRD (end stage renal disease) Plan: Patient is explained that she has advanced kidney disease 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 Problem Qualifiers (1) HTN (hypertension): Qualified Code: I10 - Essential hypertension (2) CAD (coronary artery disease): Qualified Code: I25.10 - Coronary artery disease involving [place] coronary artery of [place] heart without angina pectoris Casey Stahl MD Jul 17, 2016 10:26
--- NOTE | 2016-07-17 10:51 | HHI.FPPN ---
Subjective Remarks Patient is at hemodialysis this morning. She had an episode of urinary retention overnight. A straight catheter was placed and returned 1 L of urine. She has no complaints otherwise. (Genny Steinberg MD R1) Objective Vitals Vital Signs Date Time Temp Pulse Resp B/P Pulse Ox O2 Delivery O2 Flow Rate FiO2 07/17/16 08:00 96.4 63 18 154/97 100 07/17/16 04:00 96.3 68 16 142/101 99 07/17/16 01:14 96.5 70 20 142/94 100 07/16/16 20:00 96.4 76 18 159/108 100 07/16/16 16:20 96.7 73 22 129/86 100 07/16/16 12:00 100.4 64 18 114/58 92 07/16/16 11:30 98.5 68 12 125/81 98 Room Air 07/16/16 11:15 72 10 129/92 99 Nasal Cannula 2 07/16/16 11:13 96.6 79 18 121/85 100 07/16/16 11:00 98.6 84 12 143/91 100 Nasal Cannula 3 I/O 07/16/16 07/16/16 07/16/16 07/17/16 07/17/16 07/17/16 07:00 15:00 23:00 07:00 15:00 23:00 Intake Total 0 ml 100 ml 480 ml 150 ml Output Total 1000 ml Balance 0 ml 100 ml 480 ml -850 ml Intake Oral 0 ml 480 ml 150 ml Other 100 ml Output Urine Total 1000 ml # Voids 1 2 0 0 # Bowel Movements 0 0 0 0 (Genny Steinberg MD R1) Result Diagram: 07/17/16 0611 07/17/16 0611 Objective Remarks GENERAL: This is a well-developed female patient, in no apparent distress. SKIN: No rashes, ecchymoses or lesions. Cool and dry. HEAD: Atraumatic. Normocephalic. No temporal or scalp tenderness. EYES: Pupils equal round and reactive. Extraocular motions intact. No scleral icterus. No injection or drainage. ENT: Nose without bleeding, purulent drainage or septal hematoma. MMM. Uvula midline. Airway patent. Hemodialysis catheter present on right neck NECK: Trachea midline. No JVD or lymphadenopathy. Supple, nontender, no meningeal signs. CARDIOVASCULAR: Regular rate and rhythm. 2/6 holosystolic murmur. RESPIRATORY: Clear to auscultation. Breath sounds equal bilaterally. No wheezes , rales, or rhonchi. GASTROINTESTINAL: Abdomen soft, non-tender, nondistended. No hepato-splenomegaly , or palpable masses. No guarding. MUSCULOSKELETAL: Extremities without clubbing, cyanosis, or edema. No joint tenderness, effusion, or edema noted. NEUROLOGICAL: Awake and alert. Cranial nerves II through XII intact. Motor and sensory grossly within normal limits. Normal speech. PSYCHIATRIC: Appropriate insight and judgement. (Genny Steinberg MD R1) A/P Assessment and Plan Patient is a 50-year-old female with a past medical history significant for HTN , CAD s/p CABG, CKD, and Valdez syndrome admitted for ESRD. Hemodialysis was initiated with a temporary catheter and patient was deemed a candidate for peritoneal dialysis. General surgery was consulted and the peritoneal dialysis catheter was successfully placed on 07/16. Discussed with Dr. Hodges and Dr. Montano, PGY 2 Discharge Planning Pending nephrology recommendations after peritoneal catheter placement. (Genny Steinberg MD R1) Attending Attestation Patient seen and examined. Case reviewed and discussed Agree with plan of care as discussed with me and documented in the resident note. (Angélica Hodges MD) Problem List: (1) ESRD (end stage renal disease) Status: Acute Plan: -Creatinine elevated at 6.73 at admission, 6.23 today 07/17. Patient has received 2 dialysis treatments, with 1 L of fluid removed at each treatment -Currently receiving third hemodialysis treatment -Renal ultrasound shows small echogenic kidneys consistent with medical renal disease -Collar Folder Operator Dr. Stahl on board -Patient is a candidate for peritoneal dialysis and laparoscopic PD catheter placement was successfully performed on 07/16 -Continue strict Is & Os (2) Pancytopenia Status: Acute Plan: -WBC 5.7 today compared to 3.0 yesterday 07/16 -H&H stable at 10.3/30.1 -Platelets increased to 110 compared to 94, yesterday 07/16 -HIT antibody pending -Continue to monitor (3) Acute urinary retention Status: Acute Plan: -Pt had episode of acute urinary retention after PD catheter placement -Straight cath was placed with return of 1L urine -Had hemodialysis this am -Has voided once good volume since then -Suspect that urine retention may be due to anesthesia because pt had similar problem after her cesarian section 15 years ago -Will order urinalysis stat to rule out UTI (4) HTN (hypertension) Status: Chronic Plan: -BP 157/92 on admission -Continue home dose of HCTZ 25mg PO daily -Hydralazine 10mg PO Q8H PRN BP >160/90 (5) CAD (coronary artery disease) Status: Acute Plan: -Continue home dose of Plavix 75mg PO daily and Metoprolol 50mg PO daily (6) Valdez syndrome Status: Acute Plan: -Continue home dose of Cilostazol 100mg PO BID -Patient to follow up with pump assembler as outpatient (7) Nutrition, metabolism, and development symptoms Status: Acute Plan: Fluids: None Electrolytes: 20meq daily K supplementation Continue to monitor other electrolytes and replace as needed Nutrition: Renal Diet DVT PPx: Bilateral SCDs (Genny Steinberg MD R1) Problem Qualifiers (1) HTN (hypertension): Qualified Code: I10 - Essential hypertension (2) CAD (coronary artery disease): Qualified Code: I25.10 - Coronary artery disease involving [place] coronary artery of [place] heart without angina pectoris Genny Steinberg MD R1 Jul 17, 2016 10:51 Angélica Hodges MD Jul 17, 2016 13:21 Genny Steinberg MD R1 Jul 17, 2016 10:51 Angélica Hodges MD Jul 17, 2016 13:21
[2016-07-17] MEDS: EPOETIN ALFA 10,000 UNITS/ML VIAL IV PRN (11:07)
[2016-07-17] MEDS: GENTAMICIN SULFATE (DIALYSIS USE ONLY) 20 MG/2 ML VIAL IV PRN (11:07)
[2016-07-17] MEDS: HEPARIN SODIUM - IV 10,000 UNITS/10 ML VIAL PRN (11:07)
--- NOTE | 2016-07-17 11:59 | RADRPT ---
EXAM DATE/TIME: 07/16/2016 00:00 COMPARISON: No previous studies available for comparison. INDICATIONS : Renal biopsy OBJECTIVE: Temperature: Heart Rate: Blood Pressure: / Respiratory: Oximetry: PNEUMONIA VACCINE: HISTORY OF PRESENT ILLNESS: ? PAST MEDICAL HISTORY : PAST SURGICAL HISTORY : SOCIAL HISTORY : PHYSICAL EXAMINATION: FINDINGS/CONCLUSION: I have been asked to perform a kidney biopsy for function. The patient is currently on Plavix which is a 5-day hold and Ticlid which is a 7-day hold. The earliest I can perform this biopsy for function is 07/21. This can easily be performed as an outpatient if the patient can be discharged. Please re-consult for biopsy on or after July 21. Thank you for this consultation. This has been discussed with Dr. Stahl. Kvng Lou MD FACR on July 17, 2016 at 11:51 Board Certified Radiologist. This report was verified electronically.
[2016-07-17 12:00] VITALS: BP 125/86; PULSE 89; RESP 17; TEMP 96; O2SAT 100
--- NOTE | 2016-07-17 12:12 | HHI.PR ---
Subjective Subjective Notes Up to chair eating breakfast Just back from hemodialysis Objective Vitals/I&O Vital Signs Date Time Temp Pulse Resp B/P Pulse Ox O2 Delivery O2 Flow Rate FiO2 07/17/16 08:00 96.4 63 18 154/97 100 07/16/16 11:30 Room Air 07/16/16 11:15 2 Labs Laboratory Tests Test 07/17/16 06:11 White Blood Count 5.7 Red Blood Count 3.50 Hemoglobin 10.3 Hematocrit 30.1 Mean Corpuscular Volume 86.2 Mean Corpuscular Hemoglobin 29.5 Mean Corpuscular Hemoglobin 34.3 Concent Red Cell Distribution Width 14.9 Platelet Count 110 Mean Platelet Volume 9.3 Neutrophils (%) (Auto) 81.2 Lymphocytes (%) (Auto) 12.8 Monocytes (%) (Auto) 5.8 Eosinophils (%) (Auto) 0.1 Basophils (%) (Auto) 0.1 Neutrophils # (Auto) 4.6 Lymphocytes # (Auto) 0.7 Monocytes # (Auto) 0.3 Eosinophils # (Auto) 0.0 Basophils # (Auto) 0.0 CBC Comment DIFF FINAL Differential Comment Sodium Level 134 Potassium Level 4.5 Chloride Level 99 Carbon Dioxide Level 26.3 Anion Gap 9 Blood Urea Nitrogen 38 Creatinine 6.23 Estimat Glomerular Filtration 9 Rate Random Glucose 104 Calcium Level 8.6 Total Bilirubin 0.3 Aspartate Amino Transf 13 (AST/SGOT) Alanine Aminotransferase 10 (ALT/SGPT) Alkaline Phosphatase 73 Total Protein 6.5 Albumin 2.5 Cardiovascular: Regular Lungs: Clear Abdomen: Other (PD cath in place; abd soft ) Extremities: No edema A/P Assessment and Plan 50 year old female POD1 laparoscopic PD cath placement -Renal diet -OOB -PD per Dr. Stahl -Follow up in the office in about [address] Sykes I certify and attest that I personally examined this patient and reviewed her findings in the EMR. Ms Morton is documenting our encounter on my behalf and entered orders under my direct supervision. I discussed our recommendations with the patient and family at the bedside. I also discussed our encounter with the nursing staff present. Sugar Vines FACS Jul 17, 2016 12:12 Eric Sykes MD Jul 24, 2016 10:36
--- NOTE | 2016-07-17 12:29 | PD.ONC.PN ---
Subjective Subjective Remarks Afebrile overnight. Pt seen and examined in the dialysis department. She tells me that she feels good today. Per CT she will need to hold the Pletal for 10 days and hold the Plavix for 5 days prior to a renal biopsy. Objective Data Date Time Temp Pulse Resp B/P Pulse Ox O2 Delivery O2 Flow Rate FiO2 07/17/16 08:00 96.4 63 18 154/97 100 07/17/16 04:00 96.3 68 16 142/101 99 07/17/16 01:14 96.5 70 20 142/94 100 07/16/16 20:00 96.4 76 18 159/108 100 07/16/16 16:20 96.7 73 22 129/86 100 07/16/16 12:00 100.4 64 18 114/58 92 07/17/16 07/17/16 07/17/16 07:00 15:00 23:00 Intake Total 150 ml Output Total 1000 ml 2000 ml Balance -850 ml -2000 ml Result Diagram: 07/17/1611 07/17/16 0611 Laboratory Results Laboratory Tests Test 07/17/16 06:11 White Blood Count 5.7 TH/MM3 Red Blood Count 3.50 MIL/MM3 Hemoglobin 10.3 GM/DL Hematocrit 30.1 % Mean Corpuscular Volume 86.2 FL Mean Corpuscular Hemoglobin 29.5 PG Mean Corpuscular Hemoglobin 34.3 % Concent Red Cell Distribution Width 14.9 % Platelet Count 110 TH/MM3 Mean Platelet Volume 9.3 FL Neutrophils (%) (Auto) 81.2 % Lymphocytes (%) (Auto) 12.8 % Monocytes (%) (Auto) 5.8 % Eosinophils (%) (Auto) 0.1 % Basophils (%) (Auto) 0.1 % Neutrophils # (Auto) 4.6 TH/MM3 Lymphocytes # (Auto) 0.7 TH/MM3 Monocytes # (Auto) 0.3 TH/MM3 Eosinophils # (Auto) 0.0 TH/MM3 Basophils # (Auto) 0.0 TH/MM3 CBC Comment DIFF FINAL Differential Comment Sodium Level 134 MEQ/L Potassium Level 4.5 MEQ/L Chloride Level 99 MEQ/L Carbon Dioxide Level 26.3 MEQ/L Anion Gap 9 MEQ/L Blood Urea Nitrogen 38 MG/DL Creatinine 6.23 MG/DL Estimat Glomerular Filtration 9 ML/MIN Rate Random Glucose 104 MG/DL Calcium Level 8.6 MG/DL Total Bilirubin 0.3 MG/DL Aspartate Amino Transf 13 U/L (AST/SGOT) Alanine Aminotransferase 10 U/L (ALT/SGPT) Alkaline Phosphatase 73 U/L Total Protein 6.5 GM/DL Albumin 2.5 GM/DL Administered Medications Medications (Trade) Dose Ordered Sig/Hunter Route PRN Reason Start Time Stop Time Status Last Admin Dose Admin IV Flush (NS Flush) 2 ml BID FLUSH 07/14/16 09:00 07/16/16 21:31 Cilostazol (Pletal) 100 mg BID PO 07/14/16 09:00 07/16/16 08:53 Hydrochlorothiazide (Hydrodiuril) 25 mg DAILY PO 07/14/16 09:00 07/16/16 08:50 Metoprolol Succinate (Toprol Xl) 50 mg DAILY PO 07/14/16 09:00 07/16/16 08:50 Heparin Sodium (Porcine) 5000 units 5,000 units Q12H SQ 07/13/16 22:30 Hold 07/15/16 12:05 Sodium Chloride 1,000 ml @ 0 mls/hr Q0M PRN IV For Prime & Rinse Back 07/14/16 09:53 07/16/16 08:51 Sodium Chloride (NS 1000 ml Inj) 1,000 ml @ 200 mls/hr Q5H PRN IV WITH DIALYSIS 07/14/16 09:53 07/17/16 11:06 Heparin Sodium (Porcine) (Heparin Inj) UNSCH PRN .XX WITH DIALYSIS 07/14/16 10:00 07/17/16 11:07 Gentamicin Sulfate (Gentamicin (Dialysis) Inj) 20 mg UNSCH PRN IV WITH DIALYSIS 07/14/16 10:00 07/17/16 11:07 Clonidine (Catapres) 0.1 mg UNSCH PRN PO for BP > 180/100 X 2 readings 07/14/16 10:00 07/14/16 14:34 Epoetin Delvis (Epogen Inj) 4,000 units UNSCH PRN IV WITH DIALYSIS 07/14/16 10:00 07/17/16 11:07 Objective Remarks GENERAL: Middle aged female currently getting dialysis. SKIN: Warm and dry. HEAD: Normocephalic. EYES: No injection or drainage. NECK: Supple, trachea midline. CARDIOVASCULAR: +S1/S2. RESPIRATORY: Lungs clear anteriorly. GASTROINTESTINAL: Abdomen soft, non-tender, nondistended. EXTREMITIES: No cyanosis. No edema. NEUROLOGICAL: Moving all extremities. Normal speech. Assessment/Plan Problem List: (1) Antiphospholipid antibody syndrome Status: Acute Plan: 07/17/16: Normally she takes Pletal as well as Plavix. Per CT, she will need to hold the Plavix for 5 days and hold the Pletal for 10 days prior to biopsy. This will need to be coordinated as an outpatient. Will order for pt to have therapeutic heparin SQ in the interim to prevent blood clots. (2) History of DVT (deep vein thrombosis) Status: Resolved Plan: --Had DVT in 2011. --Now on Plavix only and has not had repeat DVT (3) ESRD (end stage renal disease) Status: Acute Plan: -- Hemodialysis today -- Peritoneal catheter placed 07/[address] Sykes. -- Per drop count associate, she will go to [facility] dialysis as an outpatient for education. (4) Thrombocytopenia Status: Acute Plan: -- Monitor -- Stable Assessment 50y/o female with antiphospholipid antibody syndrome. h/o hypertension, coronary artery disease, chronic renal failure, chronic kidney disease stage III Attending Statement feels better. renal Bx after holding Pletal x 10 days and plavix after 5 days. start s/q heparin Plat are low due to autoimmine dz. DOTTY is positive , Titer 320. She has autoimmune dz. Needs rhematology consult as outpt. The exam, history, and the medical decision-making described in the above note were completed with the assistance of the mid-level provider. I reviewed and agree with the findings presented. I attest that I had a [id number] encounter with the patient on the same day, and personally performed and documented my assessment and findings in the medical record. Hoa Guy Jul 17, 2016 12:29 Miguel Garcia MD Jul 17, 2016 13:43
[2016-07-17] MEDS: HYDROCHLOROTHIAZIDE 25 MG TAB PO SCH (12:50)
[2016-07-17] MEDS: METOPROLOL SUCCINATE 50 MG EXTENDED RELEASE TAB PO SCH (12:50)
--- NOTE | 2016-07-17 14:09 | HHI.DCPOC ---
Discharge Care Plan Diagnosis: (1) Valdez syndrome (2) Acute urinary retention (3) History of DVT (deep vein thrombosis) (4) Antiphospholipid antibody syndrome (5) HTN (hypertension) (6) Pancytopenia (7) CAD (coronary artery disease) (8) ESRD (end stage renal disease) Goals to Promote Your Health * To prevent worsening of your condition and complications * To maintain your health at the optimal level Directions to Meet Your Goals Take your medications as prescribed Follow your dietary instruction Follow activity as directed Keep your appointments as scheduled Take your immunizations and boosters as scheduled If your symptoms worsen call your PCP, if no PCP go to Urgent Care Center or Emergency Room Smoking is Dangerous to Your Health. Avoid second hand smoke Call the 24-hour hour crisis hotline for domestic abuse at Genny Steinberg MD R1 Jul 17, 2016 14:09
[2016-07-17 14:27] VITALS: O2SAT 94
[2016-07-17 15:21] LABS: HEPARIN AB OD 0.108 O.D. (0.000-0.300); HEPARIN INDUCED PLATELET AB NEGATIVE (NEGATIVE)
[2016-07-17 17:05] LABS: BLOOD, URINE NEG (NEG); GLUCOSE,URINE NEG (NEG); KETONE, URINE NEG (NEG); NITRITE,URINE NEG (NEG); SQUAMOUS EPITHELIAL CELL URINE 4 /hpf (0-5); URINE COLOR LIGHT-YELLOW (YELLW/STRAW)
[2016-07-17 17:11] LABS: COMMENT (UR) CULT NOT INDICATED; CULTURE IF INDICATED CULT NOT INDICATED
[2016-07-17 18:36] LABS: MYELOPEROXIDASE LESS THAN 1.0 AI (<1.0); PROTEINASE-3 LESS THAN 1.0 AI (<1.0)
--- NOTE | 2016-07-17 19:03 | EC ---
Study Study Date:07/17/2016 STUDY CONCLUSIONS SUMMARY - Left ventricle: The cavity size was normal. Wall thickness was normal. Systolic function was mildly reduced. The estimated ejection fraction was in the range of 45% to 50%. Wall motion was normal; there were no regional wall motion abnormalities. - Aortic valve: Mild regurgitation. - Mitral valve: Moderate regurgitation. If LV function is below 40, please consider prescribing an ACEI or ARB or document rationale for non-use. PROCEDURE DATA STUDY STATUS: Elective. Procedure: Transthoracic echocardiography. Image quality was good. Scanning was performed from the parasternal, apical, and subcostal acoustic windows. Study completion: The patient tolerated the procedure well. Transthoracic echocardiography. M-mode, complete 2D, complete spectral Doppler, and color Doppler. Patient status: Inpatient. CARDIAC ANATOMY LEFT VENTRICLE: there is assymmetric septal hypertrophy at base of septum, suspect there is ALICIA with moderate MR but not resting lvot gradient The cavity size was normal. Wall thickness was normal. Systolic function was mildly reduced. The estimated ejection fraction was in the range of 45% to 50%. Wall motion was normal; there were no regional wall motion abnormalities. AORTIC VALVE: Trileaflet; normal thickness leaflets. Doppler: Transvalvular velocity was within the normal range. There was no stenosis. Mild regurgitation. AORTA: Aortic root: The aortic root was normal in size. MITRAL VALVE: Structurally normal valve. Doppler: Transvalvular velocity was within the normal range. There was no evidence for stenosis. Moderate regurgitation. LEFT ATRIUM: The atrium was normal in size. RIGHT VENTRICLE: The cavity size was normal. Wall thickness was normal. PULMONIC VALVE: Doppler: Transvalvular velocity was within the normal range. There was no evidence for stenosis. No regurgitation. TRICUSPID VALVE: Structurally normal valve. Doppler: Transvalvular velocity was within the normal range. No regurgitation. PULMONARY ARTERY: The main pulmonary artery was normal-sized. Systolic pressure was within the normal range. RIGHT ATRIUM: The atrium was normal in size. PERICARDIUM: There was no pericardial effusion. SYSTEMIC VEINS: Inferior vena cava: The vessel was normal in size. Prepared and signed by Pedro Torres [id number]
--- NOTE | 2016-07-25 17:01 | HHI.DS ---
Discharge Summary Admission Date Jul 13, 2016 at 22:02 Admitting Diagnosis ESRD (1) ESRD (end stage renal disease) Diagnosis: Principal (2) Pancytopenia Diagnosis: Secondary (3) HTN (hypertension) Diagnosis: Secondary (4) CAD (coronary artery disease) Diagnosis: Secondary (5) Valdez syndrome Diagnosis: Secondary Plan: (6) Acute urinary retention Diagnosis: Secondary Brief History Patient is a 50-year-old female with a past medical history significant for HTN , CAD s/p CABG, ESRD, and Valdez syndrome who presented to the ED after being sent over by her PCP, Dr. Goff, for abnormal labs. Patient had a creatinine of 5.12 and a GFR of 7 on 07/03. A repeat BMP was performed in the creatinine increased to 6.6 and GFR 7 today. Patient has been feeling fatigued, nausea, vomiting, lightheaded, and having difficulty with short term memory. She is producing urine up to 5 times per day. She denies any polyuria or polydipsia. No fevers, chills, dysuria, back pain, hematuria, headache, dizziness, or visual changes. PE at Discharge GENERAL: This is a well-developed female patient, in no apparent distress. SKIN: No rashes, ecchymoses or lesions. Cool and dry. HEAD: Atraumatic. Normocephalic. No temporal or scalp tenderness. EYES: Pupils equal round and reactive. Extraocular motions intact. No scleral icterus. No injection or drainage. ENT: Nose without bleeding, purulent drainage or septal hematoma. MMM. Uvula midline. Airway patent. Hemodialysis catheter present on right neck NECK: Trachea midline. No JVD or lymphadenopathy. Supple, nontender, no meningeal signs. CARDIOVASCULAR: Regular rate and rhythm. 2/6 holosystolic murmur. RESPIRATORY: Clear to auscultation. Breath sounds equal bilaterally. No wheezes , rales, or rhonchi. GASTROINTESTINAL: Abdomen soft, non-tender, nondistended. No hepato-splenomegaly , or palpable masses. No guarding. MUSCULOSKELETAL: Extremities without clubbing, cyanosis, or edema. No joint tenderness, effusion, or edema noted. NEUROLOGICAL: Awake and alert. Cranial nerves II through XII intact. Motor and sensory grossly within normal limits. Normal speech. PSYCHIATRIC: Appropriate insight and judgement. Hospital Course Ms Bellcoleman was admitted for hemodialysis, which was initiated with a temporary catheter. The patient was deemed a candidate for peritoneal dialysis, and general surgery was consulted weight peritoneal dialysis catheter successfully placed on 07/16. Her BUN and creatinine improved during admission and arrangements were made for her to follow-up with [facility] dialysis center in the following week for peritoneal dialysis education. Due to her 2/6 systolic murmur, an echo was performed before discharge which showed moderate mitral valve regurgitation and mild aortic valve regurgitation. She already has cardiology follow-up plans as an outpatient. Pt Condition on Discharge: Stable Discharge Disposition: Discharge Home Discharge Instructions DIET: Follow Instructions for: Renal Failure Diet Activities you can perform: Weight Bearing as René Follow up Referrals: Appointment for Follow Up - 07/24/16 with Brian Snyder MD R3 Appointment for Follow Up @ [address]; p: [phone]; 8am Wednesday, Jul 21 Surgical - 1 Week with Eric Sykes MD New Orders: BASIC METABOLIC PROF - 07/22/16 Continued Medications: Cilostazol (Cilostazol) 100 Mg Tab 100 MG PO BID #60 Ref 11 TAB Clopidogrel (Clopidogrel) 75 Mg Tab 75 MG PO DAILY Blood Clot Prevention #30 Ref 11 TAB Hydrochlorothiazide (Hydrochlorothiazide) 25 Mg Tab 25 MG PO DAILY #30 Ref 11 TAB Metoprolol Succinate ER 24 HR (Metoprolol Succinate ER 24 HR) 50 Mg Tab 50 MG PO DAILY #30 Ref 11 TAB Nitroglycerin SL (Nitroglycerin SL) 0.3 Mg Subl 0.3 MG SL DIRECTED 1 TABLET UNDER TONGUE PRN FOR CHEST PAIN, MAY REPEAT EVERY 5 MINUTES FOR TOTAL OF 3 DOSES. CALL 911 IF NO RELIEF PRN CHEST PAIN #100 Ref 0 TAB.SL Genny Steinberg MD R1 Jul 25, 2016 17:01
[2016-08-04] MEDS ORDERED: METO50TA11 PO (23:50)
[2016-08-04] MEDS ORDERED: CILO100T PO (23:50)
[2016-08-04] MEDS ORDERED: NITR1SUB2 SL (23:50)
[2016-08-04] MEDS ORDERED: HYDR25TA5 PO (23:50)
[2016-08-04] MEDS ORDERED: CLOP75TA PO (23:50)
[2016-08-12] MEDS ORDERED: FURO40TA PO (19:30)
[2016-08-12] MEDS ORDERED: NITR1SUB2 SL (19:36)
== END 2016-07-17 18:26 | disposition home or self-care (01) | DRG 981 ==
LOC: NEPE 17:29 → NEDA 22:02 → N06B 07-14 00:36
PROVIDERS: ADMIT Family Medicine; ATTEND Family Medicine
PROC: 05HM33Z Insertion of Infusion Device into Right Internal Jugular Vein, Percutaneous Approach (ICD-10-PCS; 2016-07-14)
PROC: 0WHG43Z Insertion of Infusion Device into Peritoneal Cavity, Percutaneous Endoscopic Approach (ICD-10-PCS; principal; 2016-07-16 09:49)
DX: I12.0 Hypertensive chronic kidney disease with stage 5 chronic kidney disease or end stage renal disease (principal); N18.6 End stage renal disease; D61.818 Other pancytopenia; I25.810 Atherosclerosis of coronary artery bypass graft(s) without angina pectoris; D68.61 Antiphospholipid syndrome; E87.6 Hypokalemia; Z95.1 Presence of aortocoronary bypass graft; Z99.2 Dependence on renal dialysis; D63.8 Anemia in other chronic diseases classified elsewhere; R33.9 Retention of urine, unspecified; Z79.02 Long term (current) use of antithrombotics/antiplatelets; Z86.718 Personal history of other venous thrombosis and embolism
CPT/HCPCS: 36556; 76775; 76937; 77001; 80048; 80053; 80069; 80074; 81001; 82140; 82570; 82728; 83520; 83540; 83550; 83735; 84100; 84156; 85025; 85027; 85597; 85610; 85613; 85730; 86021; 86022; 86038; 86039; 86146; 86147; 86148; 86160; 90935; 93306; 93970; 93998; 96374; 96375; C1750; C1752; J0131; J0690; J1580; J1644; J2250; J2370; J2405; J2710; J3010; J7030; J7040; Q4081